=== PATIENT | female | born 1935 | race Caucasian/White ===

== ENCOUNTER 2018-04-29 00:42 | Inpatient (IN) ==
[2018-04-29 01:06] LABS: Basophils % 0.2 % (0.1-2.0); Eosinophils # 0.1 K/mm3 (0.0-0.4); Eosinophils % 0.9 % (0.1-12.0); Lymphocytes # 0.7 K/mm3 (0.7-4.5); Lymphocytes % 13.2 % (10-50); Mean Corpuscular HGB Conc 29.7 g/dL (31.8-35.4); Mean Corpuscular Hemoglobin 28.7 pg (27.0-31.2); Mean Corpuscular Volume 96.5 fl (81-99); Mean Platelet Volume 7.6 fl (7.4-10.4); Monocytes # 0.4 K/mm3 (0.1-1.0); Monocytes % 6.7 % (1.7-9.3); Neutrophils # 4.5 K/mm3 (1.8-7.8); Platelet Count 342 K/mm3 (142-424); Red Blood Count 1.84 M/mm3 (4.20-5.40); Red Cell Distribution Width 16.8 % (11.5-17.5); White Blood Count 5.7 K/mm3 (4.8-10.8)
[2018-04-29 01:17] LABS: Hematocrit 17.6 % (37.0-47.0); Hemoglobin 5.3 g/dL (12.2-16.2)
[2018-04-29 01:27] LABS: Alanine Aminotransferase 22 U/L (12-78); Albumin Level 3.1 gm/dL (3.4-5.0); Alkaline Phosphatase 35 U/L (46-116); Anion Gap 12.8 mEq/L (5-15); Aspartate Amino Transferase 7 U/L (15-37); Bilirubin,Total 0.4 mg/dL (0.2-1.0); Blood Urea Nitrogen 12 mg/dL (7-18); Carbon Dioxide 26 mmol/L (21.0-32.0); Chloride 102 mmol/L (98-107); Glucose 216 mg/dL (74-106); Potassium 3.8 mmoL/L (3.5-5.1); Sodium 137 mmol/L (136-145); Total Protein,Serum 6.1 gm/dL (6.4-8.2)
[2018-04-29 01:40] LABS: Microscopic, Urine URINE MICROSCOPIC (MICROSCOPIC)
[2018-04-29 01:46] LABS: Appearance,Urine CLEAR (Clear); Bilirubin,Urine Negative (Negative); Blood, Urine Negative (Negative); Color,Urine YELLOW (Yellow); Glucose,Urine (UA) TRACE (Negative); Ketones,Urine Negative (Negative); Leukocyte Esterase,Urine Negative (Negative); PH,Urine 7.5 (5.0-8.5); Protein,Urine Negative (Negative); Specific Gravity, Urine 1.015 (1.005-1.030); Urobilinogen,Urine 0.2 EU/dl (0.2)
[2018-04-29 01:55] LABS: Amorphous Sediment,Urine 1+ /lpf; Bacteria,Urine Trace /lpf; WBC,Urine Occasional #/hpf (0-3)
--- NOTE | 2018-04-29 02:00 | Emergency Department Note ---
ED Disposition Clinical Impression: Vasovagal near syncope, Bronchitis Anemia Qualifiers: Anemia type: unspecified type Qualified Code(s): D64.9 - Anemia, unspecified Disposition: Admitted As Inpatient Condition on Discharge: Serious Referrals: Alena Keene MD [Primary Care Provider] - - Critical Care Critical Care Time: No Attestation: On 04/29/18, the high probability of a clinically significant, sudden or life threatening deterioration of the following system(s) required my full and direct attention, intervention and personal management. The time I documented below is in addition to time spent performing reported procedures but includes the following listed in this critical care notation. Medical Decision Making - Medical Records Medical records reviewed: Yes: I reviewed the patient's medical records. - [place] Inquiry Pt receiving controlled substance: No Vital Signs: 04/29/18 00:42 04/29/18 01:42 Temperature 100.3 F H Temperature Source Rectal Pulse Rate [Right Brachial] 105 H 92 H Respiratory Rate 15 15 Blood Pressure [Right Arm] 131/75 139/78 Blood Pressure Mean [Right Arm] 93 98 02 Sat by Pulse Oximetry 93 L 94 L Oxygen Delivery Method Room Air Room Air - Lab Data Lab results reviewed: Yes: I reviewed the patient's lab results. Lab Results 04/29/18 00:50: WBC 5.7, RBC 1.84 L*, Hgb 5.3 L*, Hct 17.6 L*, MCV 96.5, MCH 28.7, MCHC 29.7 L, RDW 16.8, Plt Count 342, MPV 7.6, Neut % (Auto) 79.0, Lymph % (Auto) 13.2, [place] % (Auto) 6.7, Eos % (Auto) 0.9, Baso % (Auto) 0.2, Neut # (Auto) 4.5, Lymph # (Auto) 0.7, [place] # (Auto) 0.4, Eos # (Auto) 0.1, Baso # (Auto) 0.0 04/29/18 00:50: Sodium 137, Potassium 3.8, Chloride 102, Carbon Dioxide 26, Anion Gap 12.8, BUN 12, Creatinine 0.82, Estimated Creat Clear 37, Estimated GFR 66, Est GFR ( Amer) 80, Glucose 216 H, Calcium 8.0 L, Total Bilirubin 0.4, AST 7 L, ALT 22, Alkaline Phosphatase 35 L, Troponin I < 0.02, Total Protein 6.1 L, Albumin 3.1 L, Globulin 3.0, Albumin/Globulin Ratio 1.0 L 04/29/18 00:50: Lactate 1.1 04/29/18 00:50: Influenza Type A Ag Negative, Influenza Type B Ag Negative 04/29/18 01:10: Urine Color Yellow, Urine Appearance Clear, Urine pH 7.5, Ur Specific [place] 1.015, Urine Protein Negative, Urine Glucose (UA) Trace, Urine Ketones Negative, Urine Blood Negative, Urine Nitrate Negative, Urine Bilirubin Negative, Urine Urobilinogen 0.2, Ur Leukocyte Esterase Negative, Urine WBC Occasional, Amorphous Sediment 1+, Urine Bacteria Trace 04/29/18 01:30: Crossmatch (AHG) See Detail 04/29/18 01:30: Stool Occult Blood Positive A Result diagrams: 04/29/18 00:50 04/29/18 00:50 Orders (Tests/Meds): ED MEDICATIONS Generic Name Dose Route Start Last Admin Trade Name Freq PRN Reason Stop Dose Admin Sodium Chloride 1,000 mls @ 999 mls/hr 04/29/18 01:00 04/29/18 01:07 Sod Chlor 0.9% 1000ml Bag IV 04/29/18 02:00 999 mls/hr .Q1H1M MARAL Administration Sodium Chloride 250 mls @ 25 mls/hr 04/29/18 01:30 Sod Chlor 0.9% 250ml Bag IV 04/30/18 01:29 .Q10H MARAL Sodium Chloride 3 ml 04/29/18 01:12 Sodium Chloride 3% 15ml Neb IH 05/29/18 01:11 ONCE PRN INDUCE SPUTUM COLLECTION Discontinued Medications Generic Name Dose Route Start Last Admin Trade Name Freq PRN Reason Stop Dose Admin Acetaminophen 650 mg 04/29/18 00:53 04/29/18 01:07 Acetaminophen 325mg Tab PO 04/29/18 00:54 650 mg ONCE ONE Administration Ibuprofen 400 mg 04/29/18 00:53 04/29/18 01:07 Motrin 400mg Tablet PO 04/29/18 00:54 400 mg ONCE ONE Administration ORDERS Category Date Time Status Packed Red Cells [Red Blood Cells] Stat [facility] 04/29/18 01:30 Received Type and Screen Stat [facility] 04/29/18 01:30 Received XR chest portable Stat Exams 04/29/18 00:50 Taken Occult Blood,Stool Stat Lab 04/29/18 01:30 Ordered Urinalysis and Microscopic Stat Lab 04/29/18 01:10 Ordered Blood Culture Stat Micro 04/29/18 00:52 Ordered Sputum Culture & Gram Stain Stat Micro 04/29/18 01:12 Ordered - Radiology Data #1 Image(s): Chest Image Reviewed: Yes I reviewed the patient's radiology image Preliminary Findings: Normal/NAD - ECG Data Tracing #1 Arrhythmias present: sinus tach Ischemic changes: non-specific ST-T wave changes Weakness HPI - General Chief complaint: Weakness Stated complaint: weakness & fever Time Seen by Provider: 04/29/18 00:55 Mode of Arrival: EMS Source of Information: Patient, Relative, EMS, Medical Record Limitations: No Limitations Description of Symptoms (Recalled from ER Triage Doc. by RN): Reports progressive weakness over the last couple of days, states she was told by Dr Keene she had "fluid around her heart" but no pneumonia but does have fever. Denies nausea or vomiting, denies body aches, denies urinary symptoms, does c/o cough and pain with inspiration. - History of Present Illness HPI Narrative: has had cough over the last few days and tonight had weakness and near syncopal episode - no def chest pain - MD Complaint: generalized weakness Onset (ago): hour(s) Duration: constant Location: generalized Severity: moderate Associated symptoms: shortness of breath - Related Data Home Medications Medication Instructions Recorded Confirmed Amlodipine Besylate 5 mg PO DAILY 04/29/18 04/29/18 Allergies Allergy/AdvReac Type Severity Reaction Status Date / Time No Known Allergies Allergy Unverified 05/19/17 14:41 [facility] History I have reviewed the patient's past medical history: Yes Medical History: Reports:: Diabetes Mellitus Type 2 Denies:: Cancer, MRSA Amputation: No Fractures: No - Social History Alcohol Intake: never - Psychiatric History Expresses thoughts of harming self/others: None Suicide Plan Description: No Plan ROS Obtained: Yes All systems reviewed & no additional complaints - Constitutional Constitutional: Denies fever(s), Reports weakness - Eyes Eyes: Denies blurry vision, Denies change in vision - ENT Ears, Nose, Mouth, and Throat: Denies sore throat - Cardiovascular Cardiovascular: Denies chest pain, Reports dyspnea, Reports lightheadedness - Respiratory Respiratory: Yes cough, No coughing up blood - Gastrointestinal Gastrointestingal: Denies: abdominal pain, black, tarry stools, nausea, vomiting - Genitourinary Male Genitourinary: Reports hematuria Female Genitourinary: Denies hematuria - Musculoskeletal Musculoskeletal: Denies joint pain, Denies neck pain - Integumentary/Breasts Skin/Breast: Denies rash - Neurologic Neurologic: Denies seizure-like activity Physical Exam - General General appearance: alert, in no apparent distress - Head Head exam: normocephalic - Eye Eye exam: Present: PERRL, EOMI, other (pale conj) - ENT ENT exam: Present: mucous membranes dry - Neck Neck exam: Present: trachea midline - Respiratory Respiratory exam: Present: normal lung sounds bilaterally. Absent: respiratory distress - Cardiovascular Cardiovascular exam: Present: regular rate, systolic murmur, +S4 - Abdominal Exam Abdominal exam: Present: soft. Absent: tenderness - Rectal Exam Rectal exam: Present: heme (+) stool - Extremities Exam Extremities exam: Absent: calf tenderness - Neurological Exam Neurological exam: Present: alert, oriented X3, CN II-XII intact - Psychiatric Psychiatric exam: Present: normal affect - Skin Skin exam: Absent: rash
[2018-04-29 06:22] LABS: Anion Gap 13.6 mEq/L (5-15); Calcium 7.7 mg/dL (8.5-10.1); Potassium 3.6 mmoL/L (3.5-5.1)
--- NOTE | 2018-04-29 07:20 | History & Physical Report ---
*Admission Date: 04/29/18 *Chief complaint: Weakness *History of present illness: 82-year-old female with history of hypertension and needed admission to [facility] 13 years ago for ischemic colitis of the descending colon presented to the emergency department with 1 week of compressive weakness. Patient tells me during initial onset of her weakness she did have some left lower quadrant abdominal pain as well but that has improved. She has noted some darkening of the stools. Appetite has been unchanged. Weakness however became progressive until she had a near syncopal event. She will presented to the emergency department and was found to be anemic. Patient takes a baby aspirin e day. She denies use of [id number] NSAIDs. This morning she denies nausea or vomiting. [facility] History Medical History: Reports:: Diabetes Mellitus Type 2, Hypertension Denies:: Cancer, MRSA Comment: Ischemic colitis-[facility] 2004 Amputation: No Fractures: No - *Social History Educational Level: Completed Grade School Smoking Status: Never smoker Alcohol Intake: never Occupational Status: retired Housing: house - Psychiatric History Expresses thoughts of harming self/others: None Suicide Plan Description: No Plan *Family Hx:: Coronary Artery Disease, Heart Attack Review of Systems - Review of Systems Review of systems:: pertinent systems reviewed and negative unless documented below - Constitutional Reports fatigue, Denies body ache(s), Denies chills, Denies daytime sleepiness, Denies excessive sweating, Denies fever(s) - *Cardiovascular Reports shortness of breath, Reports shortness of breath with activity, Denies chest pain, Denies chest pain at rest, Denies chest pain with activity, Denies irregular heart rhythm - *Respiratory Reports cough - *Gastrointestinal Reports abdominal pain, Reports change in bowel habits, Reports change in stools, Denies belching, Denies bloating - *Musculoskeletal Denies abnormal walking - Integumentary/Breasts Denies hair loss - *Neurologic Reports weakness, Denies seizure-like activity Meds Home Medications Medication Instructions Recorded Confirmed Type Amlodipine Besylate 10 mg PO DAILY 04/29/18 04/29/18 History Aspirin 81 mg PO DAILY 04/29/18 04/29/18 History Multivitamin [Multivitamins] 1 each PO DAILY 04/29/18 04/29/18 History Allergies Allergy/AdvReac Type Severity Reaction Status Date / Time No Known Allergies Allergy Verified 04/29/18 03:14 Exam Vital signs and Labs for Last 24 Hours: Temp Pulse Resp BP Pulse Ox 97.8 F 78 17 149/72 H 95 04/29/18 06:50 04/29/18 06:50 04/29/18 06:50 04/29/18 06:50 04/29/18 06:50 Laboratory Results - last 24 hr 04/29/18 00:50: WBC 5.7, RBC 1.84 L*, Hgb 5.3 L*, Hct 17.6 L*, MCV 96.5, MCH 28.7, MCHC 29.7 L, RDW 16.8, Plt Count 342, MPV 7.6, Neut % (Auto) 79.0, Lymph % (Auto) 13.2, [place] % (Auto) 6.7, Eos % (Auto) 0.9, Baso % (Auto) 0.2, Neut # (Auto) 4.5, Lymph # (Auto) 0.7, [place] # (Auto) 0.4, Eos # (Auto) 0.1, Baso # (Auto) 0.0 04/29/18 00:50: Sodium 137, Potassium 3.8, Chloride 102, Carbon Dioxide 26, Anion Gap 12.8, BUN 12, Creatinine 0.82, Estimated Creat Clear 37, Estimated GFR 66, Est GFR ( Amer) 80, Glucose 216 H, Calcium 8.0 L, Total Bilirubin 0.4, AST 7 L, ALT 22, Alkaline Phosphatase 35 L, Troponin I < 0.02, Total Protein 6.1 L, Albumin 3.1 L, Globulin 3.0, Albumin/Globulin Ratio 1.0 L 04/29/18 00:50: Lactate 1.1 04/29/18 00:50: Influenza Type A Ag Negative, Influenza Type B Ag Negative 04/29/18 00:50: Hemoglobin A1c 6.5 04/29/18 00:50: Ferritin 13 04/29/18 01:10: Urine Color Yellow, Urine Appearance Clear, Urine pH 7.5, Ur Specific [place] 1.015, Urine Protein Negative, Urine Glucose (UA) Trace, Urine Ketones Negative, Urine Blood Negative, Urine Nitrate Negative, Urine Bilirubin Negative, Urine Urobilinogen 0.2, Ur Leukocyte Esterase Negative, Urine WBC Occasional, Amorphous Sediment 1+, Urine Bacteria Trace 04/29/18 01:30: Blood Type O Positive, Antibody Screen Negative, Crossmatch (AHG) See Detail 04/29/18 01:30: Stool Occult Blood Positive A 04/29/18 05:55: Troponin I < 0.02 04/29/18 05:55: Sodium 140, Potassium 3.6, Chloride 106, Carbon Dioxide 24, Anion Gap 13.6, BUN 10, Creatinine 0.77, Estimated Creat Clear 42, Estimated GFR 71, Est GFR ( Amer) 86, Glucose 184 H, Calcium 7.7 L I & O for Last 24 hours: Intake & Output 04/26/18 04/27/18 04/28/18 04/29/18 11:59 11:59 11:59 11:59 Intake Total 1047 / 1047 Output Total 800 / 800 Balance 247 / 247 Weight 140 lb 1 oz Narrative: Patient is awake and alert. She does not appear to be in any distress. She is not showing any significant pallor. Oropharynx is moist. Neck is without lymphadenopathy or carotid bruits. Lungs are clear to auscultation. Heart has a regular rate and rhythm. Abdomen is soft with mild left lower quadrant tenderness to palpation and voluntary guarding. Bowel sounds are present. Patient can move all extremities. Hands and feet are warm to touch. Neurologically her exam is grossly normal Assessment and Plan (1) Anemia Current visit: Yes Status: Suspected Qualifiers: Other causes of anemia: acute posthemorrhagic Qualified Code(s): D64.9 - Anemia, unspecified Category: Medical Code(s): D64.9 - Anemia, unspecified (2) Hypertension Current visit: Yes Status: Chronic Qualifiers: Hypertension type: essential hypertension Qualified Code(s): I10 - Essential (primary) hypertension Category: Medical Code(s): I10 - Essential (primary) hypertension - Assessment and plan all Dx Assessment and Plan for all problems:: Patient has been admitted and is being transfused packed red blood cells. H&H but will be repeated later this morning and again this evening. Due to patient's history of ischemic colitis in her left lower quadrant pain I will proceed with a CT of the abdomen and pelvis with IV and oral contrast. Aspirin will be held. Start IV Protonix for possibility of upper GI bleed due to aspirin.
--- NOTE | 2018-04-29 07:38 | Pharmacy Consult Notes ---
[facility] Pharmacy VTE Monitoring - Patient Demographics Admission date: 04/29/18 Report Date: 04/29/18 Time: 07:38 Allergies/Adverse Reactions: Patient Allergies No Known Allergies Allergy (Verified 04/29/18 03:14) Height: 1.7 m Weight: 63.531 kg Patient Problems: Current Active Problems Vasovagal near syncope (Acute) Bronchitis (Acute) Hypertension (Chronic) - VTE Risk Labs: VTE Related Lab Results Hgb 5.3 g/dL (12.2-16.2) L* 04/29/18 00:50 Hct 17.6 % (37.0-47.0) L* 04/29/18 00:50 Plt Count 342 K/mm3 (142-424) 04/29/18 00:50 BUN 10 mg/dL (7-18) 04/29/18 05:55 Creatinine 0.77 mg/dL (0.55-1.02) 04/29/18 05:55 Estimated Creat Clear 42 mL/min (50-200) 04/29/18 05:55 Was VTE Risk Assessment Performed: Yes VTE Score: 2 VTE Risk Level: Low Risk - Prophylaxis VTE Prophylaxis Ordered?: Yes Types of VTE Prophylaxis: TEDS Knee High Location of Applied Device: Bilateral Lower Extremeties - VTE Diagnosis Confirmed Treatment or plan recommended: Continue Current Treatment
[2018-04-29 08:45] LABS: Basophils % 0.3 % (0.1-2.0); Eosinophils # 0.1 K/mm3 (0.0-0.4); Eosinophils % 1.2 % (0.1-12.0); Lymphocytes % 17.1 % (10-50); Mean Corpuscular HGB Conc 31.1 g/dL (31.8-35.4); Mean Corpuscular Hemoglobin 29.6 pg (27.0-31.2); Mean Platelet Volume 8.4 fl (7.4-10.4); Monocytes # 0.4 K/mm3 (0.1-1.0); Monocytes % 7.1 % (1.7-9.3); Neutrophils # 4.2 K/mm3 (1.8-7.8); Neutrophils % 74.3 % (37.0-80.0); Platelet Count 284 K/mm3 (142-424); Red Blood Count 2.76 M/mm3 (4.20-5.40); Red Cell Distribution Width 15.8 % (11.5-17.5); White Blood Count 5.6 K/mm3 (4.8-10.8)
[2018-04-29 08:46] LABS: Hematocrit 26.2 % (37.0-47.0)
[2018-04-29 08:56] LABS: Hemoglobin 8.1 g/dL (12.2-16.2)
[2018-04-29 08:58] LABS: Reticulocyte % (Auto) 7.4 % (0.9-3.2)
[2018-04-29 11:16] LABS: Basophils % 0.2 % (0.1-2.0); Eosinophils # 0.1 K/mm3 (0.0-0.4); Eosinophils % 1.1 % (0.1-12.0); Hemoglobin 8.1 g/dL (12.2-16.2); Lymphocytes # 0.9 K/mm3 (0.7-4.5); Lymphocytes % 16.9 % (10-50); Mean Corpuscular HGB Conc 32.4 g/dL (31.8-35.4); Mean Corpuscular Hemoglobin 30.3 pg (27.0-31.2); Mean Corpuscular Volume 93.5 fl (81-99); Mean Platelet Volume 7.9 fl (7.4-10.4); Monocytes # 0.5 K/mm3 (0.1-1.0); Monocytes % 8.1 % (1.7-9.3); Neutrophils # 4.1 K/mm3 (1.8-7.8); Neutrophils % 73.6 % (37.0-80.0); Platelet Count 279 K/mm3 (142-424); Red Blood Count 2.68 M/mm3 (4.20-5.40); White Blood Count 5.6 K/mm3 (4.8-10.8)
[2018-04-29 20:14] LABS: Basophils % 0.3 % (0.1-2.0); Eosinophils # 0.2 K/mm3 (0.0-0.4); Eosinophils % 2.6 % (0.1-12.0); Hematocrit 25.1 % (37.0-47.0); Lymphocytes # 0.8 K/mm3 (0.7-4.5); Lymphocytes % 13.6 % (10-50); Mean Corpuscular HGB Conc 31.4 g/dL (31.8-35.4); Mean Corpuscular Hemoglobin 29.4 pg (27.0-31.2); Mean Corpuscular Volume 93.5 fl (81-99); Mean Platelet Volume 7.9 fl (7.4-10.4); Monocytes # 0.4 K/mm3 (0.1-1.0); Monocytes % 6.9 % (1.7-9.3); Neutrophils # 4.4 K/mm3 (1.8-7.8); Neutrophils % 76.6 % (37.0-80.0); Platelet Count 293 K/mm3 (142-424); Red Blood Count 2.69 M/mm3 (4.20-5.40); Red Cell Distribution Width 16.1 % (11.5-17.5); White Blood Count 5.8 K/mm3 (4.8-10.8)
[2018-04-29 20:24] LABS: Hemoglobin 7.9 g/dL (12.2-16.2)
--- NOTE | 2018-04-30 06:23 | Consult Report ---
*Admission Date: 04/29/18 *Chief complaint: Weakness *History of present illness: This is an 82-year-old female seen in consultation with Dr. Gabriel for esophagogastroduodenoscopy. She presented with weakness and was found to be significantly anemic. No definitive source noted; however, she has been found to be Hemoccult positive. Please see HPI from an admission H&P forwarded below: 82-year-old female with history of hypertension and needed admission to [facility] 13 years ago for ischemic colitis of the descending colon presented to the emergency department with 1 week of compressive weakness. Patient tells me during initial onset of her weakness she did have some left lower quadrant abdominal pain as well but that has improved. She has noted some darkening of the stools. Appetite has been unchanged. Weakness however became progressive until she had a near syncopal event. She will presented to the emergency department and was found to be anemic. Patient takes a baby aspirin each day. She denies use of [id number] NSAIDs. This morning she denies nausea or vomiting. Review of Systems - Constitutional Reports lack of energy - *Cardiovascular Denies chest pain - *Gastrointestinal Denies bright, red blood in stools - *Genitourinary Denies abnormal vaginal bleeding - *Neurologic Reports weakness, Denies abnormal walking, Denies seizure-like activity - Hematologic/Lymphatic Denies easy bleeding [facility] History Medical History: Reports:: Diabetes Mellitus Type 2, Hypertension Denies:: Cancer, MRSA Amputation: No Fractures: No - *Social History Educational Level: Completed Grade School Smoking Status: Never smoker Alcohol Intake: never Occupational Status: retired Housing: house - Psychiatric History Expresses thoughts of harming self/others: None Suicide Plan Description: No Plan *Family Hx:: Coronary Artery Disease, Heart Attack Meds Home Medications Medication Instructions Recorded Confirmed Type Amlodipine Besylate 10 mg PO DAILY 04/29/18 04/29/18 History Aspirin 81 mg PO DAILY 04/29/18 04/29/18 History Multivitamin [Multivitamins] 1 each PO DAILY 04/29/18 04/29/18 History Allergies Allergy/AdvReac Type Severity Reaction Status Date / Time No Known Allergies Allergy Verified 04/29/18 03:14 Exam Vital signs and Labs for Last 24 Hours: Temp Pulse Resp BP Pulse Ox 98.6 F 80 16 181/85 H 97 04/30/18 03:40 04/30/18 04:00 04/30/18 00:00 04/30/18 03:39 04/30/18 03:39 Laboratory Results - last 24 hr 04/29/18 01:30: Blood Type O Positive, Antibody Screen Negative, Crossmatch (AHG) See Detail 04/29/18 05:55: Troponin I < 0.02 04/29/18 05:55: Sodium 140, Potassium 3.6, Chloride 106, Carbon Dioxide 24, Anion Gap 13.6, BUN 10, Creatinine 0.77, Estimated Creat Clear 42, Estimated GFR 71, Est GFR ( Amer) 86, Glucose 184 H, Calcium 7.7 L 04/29/18 08:35: WBC 5.6, RBC 2.76 L D, Hgb 8.1 L D, Hct 26.2 L, MCV 95.0, MCH 29.6, MCHC 31.1 L, RDW 15.8, Plt Count 284, MPV 8.4, Neut % (Auto) 74.3, Lymph % (Auto) 17.1, [place] % (Auto) 7.1, Eos % (Auto) 1.2, Baso % (Auto) 0.3, Neut # (Auto) 4.2, Lymph # (Auto) 1.0, [place] # (Auto) 0.4, Eos # (Auto) 0.1, Baso # (Auto) 0.0 04/29/18 08:35: Blood Type Confirm O Positive 04/29/18 08:35: Retic Count (auto) 7.4 H 04/29/18 11:08: WBC 5.6, RBC 2.68 L, Hgb 8.1 L, Hct 25.0 L, MCV 93.5, MCH 30.3, MCHC 32.4, RDW 16.0, Plt Count 279, MPV 7.9, Neut % (Auto) 73.6, Lymph % (Auto) 16.9, [place] % (Auto) 8.1, Eos % (Auto) 1.1, Baso % (Auto) 0.2, Neut # (Auto) 4.1, Lymph # (Auto) 0.9, [place] # (Auto) 0.5, Eos # (Auto) 0.1, Baso # (Auto) 0.0 04/29/18 20:03: WBC 5.8, RBC 2.69 L, Hgb 7.9 L*, Hct 25.1 L, MCV 93.5, MCH 29.4, MCHC 31.4 L, RDW 16.1, Plt Count 293, MPV 7.9, Neut % (Auto) 76.6, Lymph % (Auto) 13.6, [place] % (Auto) 6.9, Eos % (Auto) 2.6, Baso % (Auto) 0.3, Neut # (Auto) 4.4, Lymph # (Auto) 0.8, [place] # (Auto) 0.4, Eos # (Auto) 0.2, Baso # (Auto) 0.0 04/30/18 03:43: POC Glucose 187 H I & O for Last 24 hours: Intake & Output 04/27/18 04/28/18 04/29/18 04/30/18 11:59 11:59 11:59 11:59 Intake Total 1287 / 1287 503 / 503 Output Total 800 / 800 800 / 800 Balance 487 / 487 -297 / -297 Weight 140 lb 1 oz - Constitutional no acute distress - *Routine Cardiovascular Exam Present: RRR - *Routine Abdominal Exam Present: soft Results - Labs 04/29/18 20:03 04/29/18 05:55 Laboratory Results - last 24 hr 04/29/18 01:30: Blood Type O Positive, Antibody Screen Negative, Crossmatch (AHG) See Detail 04/29/18 05:55: Troponin I < 0.02 04/29/18 05:55: Sodium 140, Potassium 3.6, Chloride 106, Carbon Dioxide 24, Anion Gap 13.6, BUN 10, Creatinine 0.77, Estimated Creat Clear 42, Estimated GFR 71, Est GFR ( Amer) 86, Glucose 184 H, Calcium 7.7 L 04/29/18 08:35: WBC 5.6, RBC 2.76 L D, Hgb 8.1 L D, Hct 26.2 L, MCV 95.0, MCH 29.6, MCHC 31.1 L, RDW 15.8, Plt Count 284, MPV 8.4, Neut % (Auto) 74.3, Lymph % (Auto) 17.1, [place] % (Auto) 7.1, Eos % (Auto) 1.2, Baso % (Auto) 0.3, Neut # (Auto) 4.2, Lymph # (Auto) 1.0, [place] # (Auto) 0.4, Eos # (Auto) 0.1, Baso # (Auto) 0.0 04/29/18 08:35: Blood Type Confirm O Positive 04/29/18 08:35: Retic Count (auto) 7.4 H 04/29/18 11:08: WBC 5.6, RBC 2.68 L, Hgb 8.1 L, Hct 25.0 L, MCV 93.5, MCH 30.3, MCHC 32.4, RDW 16.0, Plt Count 279, MPV 7.9, Neut % (Auto) 73.6, Lymph % (Auto) 16.9, [place] % (Auto) 8.1, Eos % (Auto) 1.1, Baso % (Auto) 0.2, Neut # (Auto) 4.1, Lymph # (Auto) 0.9, [place] # (Auto) 0.5, Eos # (Auto) 0.1, Baso # (Auto) 0.0 04/29/18 20:03: WBC 5.8, RBC 2.69 L, Hgb 7.9 L*, Hct 25.1 L, MCV 93.5, MCH 29.4, MCHC 31.4 L, RDW 16.1, Plt Count 293, MPV 7.9, Neut % (Auto) 76.6, Lymph % (Auto) 13.6, [place] % (Auto) 6.9, Eos % (Auto) 2.6, Baso % (Auto) 0.3, Neut # (Auto) 4.4, Lymph # (Auto) 0.8, [place] # (Auto) 0.4, Eos # (Auto) 0.2, Baso # (Auto) 0.0 04/30/18 03:43: POC Glucose 187 H Assessment and Plan (1) Anemia Current visit: Yes Status: Suspected Qualifiers: Other causes of anemia: acute posthemorrhagic Category: Medical Code(s): D64.9 - Anemia, unspecified (2) Hypertension Current visit: Yes Status: Chronic Qualifiers: Hypertension type: essential hypertension Qualified Code(s): I10 - Essential (primary) hypertension Category: Medical Code(s): I10 - Essential (primary) hypertension (3) Heme positive stool Current visit: Yes Status: Acute Category: Medical Code(s): R19.5 - Other fecal abnormalities The patient is being scheduled for esophagogastroduodenoscopy to be performed this morning. Further evaluation and management will be pending results of this procedure. I have discussed the risks and benefits including, but not limited to: Bleeding Infection Damage to surrounding tissue Inherent risks of sedation The patient agrees to proceed.
[2018-04-30 06:27] LABS: Eosinophils # 0.2 K/mm3 (0.0-0.4); Lymphocytes # 0.7 K/mm3 (0.7-4.5); Mean Platelet Volume 7.5 fl (7.4-10.4); Monocytes # 0.4 K/mm3 (0.1-1.0); Red Cell Distribution Width 15.6 % (11.5-17.5)
[2018-04-30 06:45] LABS: Basophils % 0.4 % (0.1-2.0); Eosinophils % 4.2 % (0.1-12.0); Lymphocytes % 14.6 % (10-50); Mean Corpuscular HGB Conc 31.2 g/dL (31.8-35.4); Mean Corpuscular Hemoglobin 29.1 pg (27.0-31.2); Mean Corpuscular Volume 93.4 fl (81-99); Monocytes % 7.7 % (1.7-9.3); Neutrophils # 3.7 K/mm3 (1.8-7.8); Neutrophils % 73.1 % (37.0-80.0); Platelet Count 277 K/mm3 (142-424); Red Blood Count 3.21 M/mm3 (4.20-5.40)
[2018-04-30 06:54] LABS: Hemoglobin 9.4 g/dL (12.2-16.2)
--- NOTE | 2018-04-30 06:54 | Progress Note ---
Internal Medicine - PN: Subj *Date: 04/30/18 *Time: 06:53 Interval history: Patient has no complaints this morning. She had another unit of blood transfused overnight when her hemoglobin dropped just slightly to 7.9. She has not had any further bowel movements. She is scheduled for EGD this morning. She tolerated a soft diet yesterday evening. Exam Vital signs and Labs for Last 24 Hours: Temp Pulse Resp BP Pulse Ox 98.6 F 80 16 181/85 H 97 04/30/18 03:40 04/30/18 04:00 04/30/18 00:00 04/30/18 03:39 04/30/18 03:39 Laboratory Results - last 24 hr 04/29/18 01:30: Blood Type O Positive, Antibody Screen Negative, Crossmatch (AHG) See Detail 04/29/18 08:35: WBC 5.6, RBC 2.76 L D, Hgb 8.1 L D, Hct 26.2 L, MCV 95.0, MCH 29.6, MCHC 31.1 L, RDW 15.8, Plt Count 284, MPV 8.4, Neut % (Auto) 74.3, Lymph % (Auto) 17.1, [place] % (Auto) 7.1, Eos % (Auto) 1.2, Baso % (Auto) 0.3, Neut # (Auto) 4.2, Lymph # (Auto) 1.0, [place] # (Auto) 0.4, Eos # (Auto) 0.1, Baso # (Auto) 0.0 04/29/18 08:35: Blood Type Confirm O Positive 04/29/18 08:35: Retic Count (auto) 7.4 H 04/29/18 11:08: WBC 5.6, RBC 2.68 L, Hgb 8.1 L, Hct 25.0 L, MCV 93.5, MCH 30.3, MCHC 32.4, RDW 16.0, Plt Count 279, MPV 7.9, Neut % (Auto) 73.6, Lymph % (Auto) 16.9, [place] % (Auto) 8.1, Eos % (Auto) 1.1, Baso % (Auto) 0.2, Neut # (Auto) 4.1, Lymph # (Auto) 0.9, [place] # (Auto) 0.5, Eos # (Auto) 0.1, Baso # (Auto) 0.0 04/29/18 20:03: WBC 5.8, RBC 2.69 L, Hgb 7.9 L*, Hct 25.1 L, MCV 93.5, MCH 29.4, MCHC 31.4 L, RDW 16.1, Plt Count 293, MPV 7.9, Neut % (Auto) 76.6, Lymph % (Auto) 13.6, [place] % (Auto) 6.9, Eos % (Auto) 2.6, Baso % (Auto) 0.3, Neut # (Auto) 4.4, Lymph # (Auto) 0.8, [place] # (Auto) 0.4, Eos # (Auto) 0.2, Baso # (Auto) 0.0 04/30/18 03:43: POC Glucose 187 H I & O for Last 24 hours: Intake & Output 04/27/18 04/28/18 04/29/18 04/30/18 11:59 11:59 11:59 11:59 Intake Total 1287 / 1287 503 / 503 Output Total 800 / 800 800 / 800 Balance 487 / 487 -297 / -297 Weight 140 lb 1 oz Narrative: She is in no distress. Abdomen is soft and nontender Assessment and Plan (1) Anemia Current visit: Yes Status: Suspected Qualifiers: Other causes of anemia: acute posthemorrhagic Category: Medical Code(s): D64.9 - Anemia, unspecified (2) Hypertension Current visit: Yes Status: Chronic Qualifiers: Hypertension type: essential hypertension Qualified Code(s): I10 - Essential (primary) hypertension Category: Medical Code(s): I10 - Essential (primary) hypertension (3) Heme positive stool Current visit: Yes Status: Acute Category: Medical Code(s): R19.5 - Other fecal abnormalities - Assessment and plan all Dx Assessment and Plan for all problems:: Patient will undergo EGD today. Await morning CBC. If H&H remains stable and EGD is unremarkable patient will be discharged home later today. If EGD is abnormal further decisions about disposition will be made
--- NOTE | 2018-04-30 07:12 | Progress Note ---
[facility] Anesthesia Checklist - Structural Data Admitted From: Inpatient Planned Operative Procedure/s: egd Consent for Planned Operative Procedure(s) Verified: Yes - Airway Assessment C-Spine Mobility Assessed: Yes TMJ Mobility Assessed: Yes Dentition: Good Dentition - Neurological Assessment Level of Consciousness: Awake, Alert, Appropriate - Anesthesia Plan Anesthesia Risk discussed: Yes Anesthesia Plan: Verified ASA Class: II Anesthesia Type: MAC [facility] History I have reviewed the patient's past medical history: Yes Medical History: Reports:: Diabetes Mellitus Type 2, Hypertension Denies:: Cancer, MRSA Amputation: No Fractures: No - *Social History Educational Level: Completed Grade School Smoking Status: Never smoker Alcohol Intake: never Occupational Status: retired Housing: house - Psychiatric History Expresses thoughts of harming self/others: None Suicide Plan Description: No Plan *Family Hx:: Coronary Artery Disease, Heart Attack
--- NOTE | 2018-04-30 07:19 | Procedure Note ---
- Procedure: Date: 04/30/18 Procedure Performed:: Esophagogastroduodenoscopy with biopsy Indications:: Anemia Heme positive stools Performing Provider:: Nazario Cervantes MD Referring Provider:: Dr. Grant Gabriel Sedation:: Monitored anesthesia care Procedure:: After informed consent was obtained the patient was taken to the endoscopy suite. Sedation ensued after the patient was transferred to the left lateral decubitus position. Pulse, blood pressure, and oxygen saturation were monitored throughout the procedure. The endoscope was advanced beyond the duodenal bulb. Retroflexion within the gastric lumen was accomplished. The gastroscope was carefully removed and the patient was transferred to recovery in stable condition. Please see "findings" and "specimens" below for detail. Findings:: Gastroesophageal junction 40 cm Fairly small sliding hiatal hernia Mild inflammatory response at gastroesophageal junction Minimal to mild patchy gastritis and possible duodenitis No sign of active or recent hemorrhage No severe inflammation No ulceration Specimens:: Antral biopsy Recommendations:: Proton pump inhibition and/or H2 blockade as appropriate. Follow-up pathology. Further evaluation/management with regard to anemia/heme positive stools will be ongoing. Complications:: No immediate Estimated blood obtained (mL): 1
[2018-04-30 11:22] LABS: Basophils % 0.2 % (0.1-2.0); Eosinophils # 0.3 K/mm3 (0.0-0.4); Eosinophils % 4.5 % (0.1-12.0); Hematocrit 31.5 % (37.0-47.0); Hemoglobin 9.7 g/dL (12.2-16.2); Lymphocytes # 0.7 K/mm3 (0.7-4.5); Lymphocytes % 12.1 % (10-50); Mean Corpuscular HGB Conc 30.8 g/dL (31.8-35.4); Mean Corpuscular Hemoglobin 29.2 pg (27.0-31.2); Mean Corpuscular Volume 94.7 fl (81-99); Mean Platelet Volume 7.8 fl (7.4-10.4); Monocytes # 0.4 K/mm3 (0.1-1.0); Monocytes % 7.5 % (1.7-9.3); Neutrophils # 4.4 K/mm3 (1.8-7.8); Neutrophils % 75.7 % (37.0-80.0); Platelet Count 288 K/mm3 (142-424); Red Blood Count 3.32 M/mm3 (4.20-5.40); Red Cell Distribution Width 15.6 % (11.5-17.5); White Blood Count 5.8 K/mm3 (4.8-10.8)
--- NOTE | 2018-04-30 12:53 | Discharge Summary ---
General - General Admission date:: 04/29/18 Discharge date: 05/01/18 HPI HPI: 82-year-old female with history of hypertension and needed admission to [facility] 13 years ago for ischemic colitis of the descending colon presented to the emergency department with 1 week of compressive weakness. Patient tells me during initial onset of her weakness she did have some left lower quadrant abdominal pain as well but that has improved. She has noted some darkening of the stools. Appetite has been unchanged. Weakness however became progressive until she had a near syncopal event. She will presented to the emergency department and was found to be anemic. Patient takes a baby aspirin each day. She denies use of [id number] NSAIDs. This morning she denies nausea or vomiting. Review of medical records however shows a similar admission in 2004 when the patient had a limited colonoscopy after presenting with bloody diarrhea that showed ischemic colitis. Follow-up complete colonoscopy performed about a month after that admission showed resolution of her ischemic colitis. Hospital Course Hospital Course: On admission patient was transfused 2 units of packed red blood cells which raise her hemoglobin from 5.3-8.1. By that evening hemoglobin decreased slightly to 7.9 and she was transfused 1 additional unit of packed red blood cells with subsequent hemoglobins being 9.4 and 9.7. On exam the morning of admission patient had some left lower quadrant tenderness to palpation. A CT scan of the abdomen and pelvis with IV and oral contrast was ordered which only showed nonobstructive nephrolithiasis and bladder distention. Surgical service was consulted for EGD which was performed on April 30. No source of bleeding was identified. A biopsy was performed. On the evening of the patient felt better but still unsteady on her feet. She was kept overnight and discharged home on May 01. Objective Vital signs: Temp Pulse Resp BP Pulse Ox 98.2 F 90 18 179/80 H 95 04/30/18 08:00 04/30/18 08:00 04/30/18 07:29 04/30/18 07:29 04/30/18 07:29 Results Labs on day of discharge: Labs from last 24 hours 04/30/18 04/30/18 04/30/18 11:00 05:45 03:43 WBC 5.8 5.0 RBC 3.32 L 3.21 L Hgb 9.7 L 9.4 L D Hct 31.5 L 30.0 L MCV 94.7 93.4 MCH 29.2 29.1 MCHC 30.8 L 31.2 L RDW 15.6 15.6 Plt Count 288 277 MPV 7.8 7.5 Neut % (Auto) 75.7 73.1 Lymph % (Auto) 12.1 14.6 [place] % (Auto) 7.5 7.7 Eos % (Auto) 4.5 4.2 Baso % (Auto) 0.2 0.4 Neut # (Auto) 4.4 3.7 Lymph # (Auto) 0.7 0.7 [place] # (Auto) 0.4 0.4 Eos # (Auto) 0.3 0.2 Baso # (Auto) 0.0 0.0 POC Glucose 187 H Iron TIBC Iron Saturation Unsaturated IBC Blood Type Antibody Screen Crossmatch (AHG) 04/29/18 04/29/18 04/29/18 20:03 01:30 00:50 WBC 5.8 RBC 2.69 L Hgb 7.9 L* Hct 25.1 L MCV 93.5 MCH 29.4 MCHC 31.4 L RDW 16.1 Plt Count 293 MPV 7.9 Neut % (Auto) 76.6 Lymph % (Auto) 13.6 [place] % (Auto) 6.9 Eos % (Auto) 2.6 Baso % (Auto) 0.3 Neut # (Auto) 4.4 Lymph # (Auto) 0.8 [place] # (Auto) 0.4 Eos # (Auto) 0.2 Baso # (Auto) 0.0 POC Glucose Iron 12 L TIBC 329 Iron Saturation 4 L Unsaturated IBC 317 Blood Type O Positive Antibody Screen Negative Crossmatch (AHG) See Detail DS: Diagnosis - Discharge Diagnosis (1) Anemia Status: Suspected (2) Hypertension Status: Chronic (3) Heme positive stool Status: Acute Discharge Plan - Patient Discharge Instructions ACTIVITY: Continue current activity DIET: continue same diet Patient Instructions: Anemia - Follow up Plan Follow up with: Nzaario Cervantes MD [Staff Physician] - 1 week Grant Gabriel MD [Staff Physician] - 05/03/18 2:00 pm Disposition: Home, Self-Senior Living Medications: Home Medications Medication Instructions Recorded Confirmed Type Amlodipine Besylate 10 mg PO DAILY 04/29/18 04/29/18 History Aspirin 81 mg PO DAILY 04/29/18 04/29/18 History Multivitamin [Multivitamins] 1 each PO DAILY 04/29/18 04/29/18 History Prescriptions/Medication Reconciliation: New Omeprazole [Omeprazole 20mg Tab] 20 mg PO DAILY #30 tab Continue Amlodipine Besylate 10 mg PO DAILY Multivitamin [Multivitamins] 1 each PO DAILY Discontinued Aspirin 81 mg PO DAILY
[2018-05-01 09:06] LABS: Basophils % 0.2 % (0.1-2.0); Eosinophils # 0.3 K/mm3 (0.0-0.4); Eosinophils % 4.6 % (0.1-12.0); Hematocrit 29.7 % (37.0-47.0); Hemoglobin 9.3 g/dL (12.2-16.2); Lymphocytes # 0.7 K/mm3 (0.7-4.5); Lymphocytes % 12.7 % (10-50); Mean Corpuscular HGB Conc 31.5 g/dL (31.8-35.4); Mean Corpuscular Hemoglobin 29.4 pg (27.0-31.2); Mean Corpuscular Volume 93.4 fl (81-99); Mean Platelet Volume 8.1 fl (7.4-10.4); Monocytes # 0.4 K/mm3 (0.1-1.0); Monocytes % 7.5 % (1.7-9.3); Neutrophils % 74.9 % (37.0-80.0); Platelet Count 255 K/mm3 (142-424); Red Blood Count 3.18 M/mm3 (4.20-5.40); Red Cell Distribution Width 15.3 % (11.5-17.5); White Blood Count 5.4 K/mm3 (4.8-10.8)
--- NOTE | 2018-05-01 10:29 | Progress Note ---
Internal Medicine - PN: Subj *Date: 05/01/18 *Time: 10:27 Interval history: NO complaints overngint.... no GI bleeding s/s. Patient wishes to be dcd. Exam Vital signs and Labs for Last 24 Hours: Temp Pulse Resp BP Pulse Ox 98.3 F 79 18 155/88 H 97 05/01/18 08:00 05/01/18 08:00 05/01/18 08:00 05/01/18 08:00 05/01/18 08:00 Laboratory Results - last 24 hr 04/29/18 00:50: Iron 12 L, TIBC 329, Iron Saturation 4 L, Unsaturated IBC 317 04/30/18 11:00: WBC 5.8, RBC 3.32 L, Hgb 9.7 L, Hct 31.5 L, MCV 94.7, MCH 29.2, MCHC 30.8 L, RDW 15.6, Plt Count 288, MPV 7.8, Neut % (Auto) 75.7, Lymph % (Auto) 12.1, [place] % (Auto) 7.5, Eos % (Auto) 4.5, Baso % (Auto) 0.2, Neut # (Auto) 4.4, Lymph # (Auto) 0.7, [place] # (Auto) 0.4, Eos # (Auto) 0.3, Baso # (Auto) 0.0 05/01/18 09:00: WBC 5.4, RBC 3.18 L, Hgb 9.3 L, Hct 29.7 L, MCV 93.4, MCH 29.4, MCHC 31.5 L, RDW 15.3, Plt Count 255, MPV 8.1, Neut % (Auto) 74.9, Lymph % (Auto) 12.7, [place] % (Auto) 7.5, Eos % (Auto) 4.6, Baso % (Auto) 0.2, Neut # (Auto) 4.0, Lymph # (Auto) 0.7, [place] # (Auto) 0.4, Eos # (Auto) 0.3, Baso # (Auto) 0.0 I & O for Last 24 hours: Intake & Output 04/28/18 04/29/18 04/30/18 05/01/18 11:59 11:59 11:59 11:59 Intake Total 1287 / 1287 1103 / 1103 960 / 960 Output Total 800 / 800 1100 / 1100 Balance 487 / 487 3 959 / 959 Weight 140 lb 1 oz 139 lb 4 oz Microbiology Reports for the Last 24 Hours: Microbiology 04/29/18 00:52 Blood Blood Culture - Preliminary NO GROWTH AFTER 48 HOURS 04/29/18 00:52 Blood Blood Culture - Preliminary NO GROWTH AFTER 48 HOURS - Constitutional no acute distress, cooperative - *Routine HEENT Exam ENT: Present: mucous membranes moist - *Routine Respiratory Exam Present: CTA bilaterally - *Routine Cardiovascular Exam Present: RRR, Normal S1, Normal S2. Absent: murmur - *Routine Abdominal Exam Present: soft, normoactive bowel sounds. Absent: tenderness, mass - *Routine Extremities Exam Present: pulses intact. Absent: cyanosis, clubbing, edema Assessment and Plan (1) Anemia Current visit: Yes Status: Suspected Qualifiers: Other causes of anemia: acute posthemorrhagic Category: Medical Code(s): D64.9 - Anemia, unspecified (2) Hypertension Current visit: Yes Status: Chronic Qualifiers: Hypertension type: essential hypertension Qualified Code(s): I10 - Esse ntial (primary) hypertension Category: Medical Code(s): I10 - Essential (primary) hypertension (3) Heme positive stool Current visit: Yes Status: Acute Category: Medical Code(s): R19.5 - Other fecal abnormalities - Assessment and plan all Dx Assessment and Plan for all problems:: stable.... cbc acceptable.... no stigmata of bleeding. DC with close f/u as arranged.
== END 2018-05-01 11:59 | disposition home or self-care (01) ==
LOC: ER 00:42 → 2ND 02:06
PROVIDERS: ADMIT Emergency Medicine; ATTEND Family Medicine
CPT/HCPCS: 36415; 71010; 71045; 74177; 80048; 80053; 81001; 82272; 82728; 82962; 83036; 83540; 83550; 83605; 84484; 85025; 85044; 86850; 87040; 87275; 87276; 93005; 96365; 99285; G0328; J2405; P9016; Q9967

== ENCOUNTER 2018-08-13 14:52 | Observation (INO) ==
--- NOTE | 2018-08-13 16:15 | Pharmacy Consult Notes ---
[facility] Pharmacy VTE Monitoring - Patient Demographics Admission date: 08/13/18 (T) Report Date: 08/13/18 Time: 16:13 Allergies/Adverse Reactions: Patient Allergies No Known Allergies Allergy (Verified 05/26/18 13:26) Height: 1.7 m Weight: 60.526 kg - Prophylaxis Types of VTE Prophylaxis: TEDS Knee High (SONJA HOSE ORDER PLACED)
--- NOTE | 2018-08-13 16:43 | History & Physical Report ---
*Admission Date: 08/13/18 (T) *Chief complaint: Weakness *History of present illness: 82-year-old female with history of hypertension and previous hospitalization for GI bleed presented to the office today with weakness. Patient had been seen in the office 48 hours prior with concerns over possible recurrent anemia which in the past had been due to GI bleed. Patient H&H was normal on her August 11 visit. Patient went home and apparently fell. She was in the floor for several hours before being found by family. Since that time she has been unable to ambulate due to lower extremity weakness. She denies any specific joint pains. When there had been very little improvement over the last 24 hours she was brought to the office by family. Workup in the office was significant for tachycardia and an EKG that showed apparent atrial fibrillation. Because the patient's rate was 134, she was complaining of shortness of breath and weakness decision was made to admit the patient to the hospital for a Cardizem drip. However, upon arrival to the floor patient's EKG that was repeated at the hospital has shown sinus tachycardia with PACs. She is currently receiving a fluid bolus. Patient also endorses symptoms of a cough. [facility] History I have reviewed the patient's past medical history: Yes Medical History: Reports:: Diabetes Mellitus Type 2, Hypertension Denies:: Cancer, MRSA *Have you ever received a pneumonia vaccine?: No *Have you received a flu vaccine this season?: No Other Surgeries: Yes: EGD Amputation: No Fractures: No - *Social History Smoking Status: Never smoker Alcohol Intake: never *Occupational Status:: retired Housing: house Family Hx:: Coronary Artery Disease, Heart Attack Review of Systems - Constitutional Reports lack of energy, Reports malaise, Reports weakness, Denies body ache(s), Denies chills, Denies fatigue, Denies fever(s), Denies headache(s), Denies night sweats - *Cardiovascular Denies chest pain at rest, Denies chest pain with activity - *Respiratory Reports cough, Reports shortness of breath - *Gastrointestinal Denies abdominal pain, Denies bloating - *Musculoskeletal Reports abnormal walking Meds Home Medications Medication Instructions Recorded Confirmed Type Acetaminophen with Codeine 1 tab PO Q6HP PRN 08/13/18 08/13/18 History [Tylenol with Codeine #3 tablet] Albuterol Sulfate [Proair Hfa 2 puffs IH Q6HP PRN 08/13/18 08/13/18 History 90mcg/puff Inh] Amlodipine Besylate [Amlodipine 10 mg PO DAILY 08/13/18 08/13/18 History 10mg Tab] Esomeprazole Magnesium [Nexium 20 mg PO DAILY 08/13/18 08/13/18 History 24Hr] Levocetirizine Dihydrochloride 5 mg PO DAILY 08/13/18 08/13/18 History [Xyzal] hydroCHLOROthiazide 12.5 mg PO DAILY 08/13/18 08/13/18 History [Hydrochlorothiazide 12.5mg Tab] Allergies Allergy/AdvReac Type Severity Reaction Status Date / Time No Known Allergies Allergy Verified 05/26/18 13:26 Exam Vital signs and Labs for Last 24 Hours: Temp Pulse Resp BP Pulse Ox 98.6 F 125 H 20 170/98 H 92 L 08/13/18 15:35 08/13/18 15:35 08/13/18 15:35 08/13/18 15:35 08/13/18 15:35 I & O for Last 24 hours: Intake & Output 08/11/18 08/12/18 08/13/18 08/14/18 11:59 11:59 11:59 11:59 Intake Total 0 / 0 Balance 0 / 0 Weight 133 lb 7 oz Narrative: Patient is resting comfortably in bed. HEENT exam is unremarkable. Neck is without carotid bruits. There is no jugular venous distention. Lungs are clear to auscultation. Heart has a fast irregular rhythm. Abdomen is thin and soft. Extremities are warm to the touch and there is no edema Assessment and Plan (1) Paroxysmal atrial fibrillation Current visit: Yes Status: Acute Category: Medical Code(s): I48.0 - Paroxysmal atrial fibrillation (2) Sinus tachycardia Current visit: Yes Status: Acute Category: Medical Code(s): R00.0 - Tachycardia, unspecified - Assessment and plan all Dx Assessment and Plan for all problems:: Patient has been admitted and will be kept on telemetry monitoring for cardiac arrhythmia. Currently she is in sinus tachycardia. She has been given a 500 mL fluid bolus. A CBC in the office was unremarkable. Electrolytes and a BNP as well as troponin are being checked on admission. Chest x-ray will be ordered for the patient's cough
[2018-08-13 17:02] LABS: Anion Gap 15.7 mEq/L (5-15); Calcium 10.1 mg/dL (8.5-10.1)
[2018-08-13 17:08] LABS: Potassium 2.7 mmoL/L (3.5-5.1)
[2018-08-14 06:08] LABS: Anion Gap 12.4 mEq/L (5-15); Potassium 3.4 mmoL/L (3.5-5.1)
[2018-08-14 06:13] LABS: Calcium 8.8 mg/dL (8.5-10.1)
--- NOTE | 2018-08-14 07:39 | Progress Note ---
Internal Medicine - PN: Subj *Date: 08/14/18 *Time: 07:36 Interval history: Patient has no complaints this morning. She was found to be hypokalemic yesterday which I believe explains her muscular weakness. Potassium was replaced intravenously and is risen this morning although is still under normal range. Patient has continued to have a cough. Attempt was made to collect a sputum culture although her chest x-ray was negative. Sputum culture will be canceled. She admits she thinks she feels a little stronger although has not had a chance to test that theory by getting out of bed Exam Vital signs and Labs for Last 24 Hours: Temp Pulse Resp BP Pulse Ox 97.9 F 88 17 131/87 91 L 08/14/18 04:00 08/14/18 06:00 08/14/18 06:00 08/14/18 06:00 08/14/18 06:00 Laboratory Results - last 24 hr 08/13/18 16:20: Sodium 137, Potassium 2.7 L*, Chloride 97 L, Carbon Dioxide 27, Anion Gap 15.7 H, BUN 23 H, Creatinine 1.19 H, Estimated Creat Clear 34, Estimated GFR 43 L, Est GFR ( Amer) 52 L, Glucose 228 H, Calcium 10.1 08/13/18 16:20: Troponin I 0.04 08/13/18 16:20: B-Natriuretic Peptide 80 08/14/18 05:30: Sodium 139, Potassium 3.4 L D, Chloride 104, Carbon Dioxide 26, Anion Gap 12.4, BUN 18, Creatinine 0.89 D, Estimated Creat Clear 40, Estimated GFR 60, Est GFR ( Amer) 73 D, Glucose 107 H D, Calcium 8.8 D I & O for Last 24 hours: Intake & Output 08/11/18 08/12/18 08/13/18 08/14/18 11:59 11:59 11:59 11:59 Intake Total 984 / 984 Balance 984 / 984 Weight 136 lb 2 oz Microbiology Reports for the Last 24 Hours: Microbiology 08/13/18 19:45 Sputum - Expectorated Sputum Gram Stain - Final 08/13/18 19:45 Sputum - Expectorated Sputum Sputum Culture - Final Narrative: Patient is awake. She is noted to have a frequent hacking cough. Oropharynx is moist and clear. Lungs this morning have expiratory wheezes. Heart has rapid regular rate. Assessment and Plan (1) Hypokalemia Current visit: Yes Status: Acute Category: Medical Code(s): E87.6 - Hypokalemia Continue to replace potassium with both IV and oral potassium. Repeat potassium in a.m. (2) Paroxysmal atrial fibrillation Current visit: Yes Status: Acute Category: Medical Code(s): I48.0 - Paro xysmal atrial fibrillation No atrial fibrillation has been seen on telemetry monitoring since admission. Patient will transfer out of stepdown (3) Sinus tachycardia Current visit: Yes Status: Acute Category: Medical Code(s): R00.0 - Tachycardia, unspecified (4) Acute bronchospasm Current visit: Yes Status: Acute Category: Medical Code(s): J98.01 - Acute bronchospasm Start 3 times daily ipratropium and Xopenex. Give prednisone 20 mg p.o.
[2018-08-15 04:55] LABS: Anion Gap 13.7 mEq/L (5-15); Calcium 8.8 mg/dL (8.5-10.1); Potassium 3.7 mmoL/L (3.5-5.1)
--- NOTE | 2018-08-15 07:39 | Progress Note ---
Internal Medicine - PN: Subj *Date: 08/15/18 *Time: 07:36 Interval history: Patient states she does not feel well this morning. She cannot really elaborate on why she feels so bad. She claims she did not sleep very well although nursing staff reports that patient slept through the night. She has been out of bed very little. Nursing staff reports patient has required assistance of one person to ambulate back and forth to the bathroom. She has also required standby assist of another with transitions. The patient continues to cough. Her chest x-ray was negative. She denies shortness of breath. Her pulse is remained in the high 90s. Her potassium has been corrected. Patient was given steroid yesterday due to expiratory wheezes. This elevated her blood sugars. Patient also developed some tremors with initiation of breathing treatment Exam Vital signs and Labs for Last 24 Hours: Temp Pulse Resp BP Pulse Ox 98.4 F 91 H 18 168/87 H 92 L 08/15/18 03:41 08/15/18 07:11 08/15/18 03:41 08/15/18 03:41 08/15/18 07:11 Laboratory Results - last 24 hr 08/14/18 21:32: POC Glucose 363 H* 08/15/18 04:40: Sodium 140, Potassium 3.7, Chloride 104, Carbon Dioxide 26, Anion Gap 13.7, BUN 19 H, Creatinine 0.88, Estimated Creat Clear 41, Estimated GFR 61, Est GFR ( Amer) 74, Glucose 210 H D, Calcium 8.8 I & O for Last 24 hours: Intake & Output 08/12/18 08/13/18 08/14/18 08/15/18 11:59 11:59 11:59 11:59 Intake Total 1432.333 / 1432.333 890 / 890 Output Total 200 / 200 Balance 1432.333 / 1432.333 690 / 690 Weight 136 lb 2 oz 139 lb 1 oz Narrative: She does not appear to be in any distress and is comfortably laying in bed. She is getting a DuoNeb. She does not show any signs of tremors. Lung exam reveals coarse breath sounds with some expiratory wheezes. Heart has a regular rate and rhythm. Abdomen is thin and soft. Assessment and Plan (1) Hypokalemia Current visit: Yes Status: Acute Category: Medical Code(s): E87.6 - Hypokalemia Potassium has been corrected. Continue oral potassium supplementation. Repeat potassium in the morning now that sliding scale insulin will be initiated (2) Paroxysmal atrial fibrillation Current visit: Yes Status: Acute Category: Medical Code(s): I48.0 - Paroxysmal atrial fibrillation Patient has not had any atrial fibrillation while hospitalized. (3) Sinus tachycardia Current visit: Yes Status: Acute Category: Medical Code(s): R00.0 - Tachycardia, unspecified Patient has had intermittent episodes of mild tachycardia. This seems out of proportion to the patient's underlying health and medical issues. Echocardiogram will be checked in the morning (4) Acute bronchospasm Current visit: Yes Status: Acute Category: Medical Code(s): J98.01 - Acute bronchospasm (5) Diabetes mellitus type 2 in nonobese Current visit: Yes Status: Acute Category: Medical Code(s): E11.9 - Type 2 diabetes mellitus without complications Start sliding scale insulin (6) Acute bronchitis Current visit: Yes Status: Acute Category: Medical Code(s): J20.9 - Acute bronchitis, unspecified Patient will be given azithromycin 500 mg p.o.
[2018-08-15 09:17] LABS: Microscopic, Urine URINE MICROSCOPIC (MICROSCOPIC)
[2018-08-15 09:20] LABS: Appearance,Urine CLEAR (Clear); Bilirubin,Urine Negative (Negative); Blood, Urine TRACE-L (Negative); Color,Urine YELLOW (Yellow); Glucose,Urine (UA) 2+ (Negative); Ketones,Urine Negative (Negative); Leukocyte Esterase,Urine Negative (Negative); PH,Urine 6.5 (5.0-8.5); Protein,Urine 1+ (Negative); Specific Gravity, Urine 1.015 (1.005-1.030); Urobilinogen,Urine 0.2 EU/dl (0.2)
[2018-08-15 09:29] LABS: Bacteria,Urine 2+ /lpf; Squamous Epithelial Cell,Urine Occasional #/hpf (0-5)
[2018-08-16 05:51] LABS: Calcium 8.9 mg/dL (8.5-10.1)
--- NOTE | 2018-08-16 07:30 | Progress Note ---
Internal Medicine - PN: Subj *Date: 08/16/18 *Time: 07:28 Interval history: Patient reports feeling a little bit stronger regarding her legs. She still required standby assist when ambulating to the bathroom. Patient slept well. She continues to have cough. Nursing staff notes patient's O2 sats dropped to the 70s while asleep and she exhibited symptoms of sleep apnea. Exam Vital signs and Labs for Last 24 Hours: Temp Pulse Resp BP Pulse Ox 98.1 F 107 H 17 152/83 H 96 08/16/18 04:00 08/16/18 06:09 08/16/18 04:00 08/16/18 04:00 08/16/18 06:09 Laboratory Results - last 24 hr 08/15/18 09:08: Urine Color Yellow, Urine Appearance Clear, Urine pH 6.5, Ur Specific [place] 1.015, Urine Protein 1+, Urine Glucose (UA) 2+, Urine Ketones Negative, Urine Blood Trace-l, Urine Nitrate Negative, Urine Bilirubin Negative, Urine Urobilinogen 0.2, Ur Leukocyte Esterase Negative, Urine WBC 3-5, Ur Squamous Epith Cells Occasional, Urine Bacteria 2+ 08/15/18 11:31: POC Glucose 160 H 08/15/18 16:54: POC Glucose 314 H* 08/15/18 21:31: POC Glucose 290 H 08/16/18 05:07: Sodium 141, Potassium 4.0, Chloride 105, Carbon Dioxide 25, Anion Gap 15.0, BUN 18, Creatinine 0.74, Estimated Creat Clear 41, Estimated GFR 75, Est GFR ( Amer) 90 D, Glucose 155 H, Calcium 8.9 08/16/18 06:16: POC Glucose 129 H I & O for Last 24 hours: Intake & Output 08/13/18 08/14/18 08/15/18 08/16/18 11:59 11:59 11:59 11:59 Intake Total 1432.333 / 7304.470 8671 / 1250 360 / 360 Output Total 400 / 400 850 / 850 Balance 1432.333 / 1432.333 850 / 850 -490 / -490 Weight 136 lb 2 oz 139 lb 1 oz 138 lb 5 oz Microbiology Reports for the Last 24 Hours: Microbiology 08/13/18 19:45 Sputum - Expectorated Sputum Gram Stain - Final 08/13/18 19:45 Sputum - Expectorated Sputum Sputum Culture - Final 08/16/18 04:40 Sputum - Expectorated Sputum Gram Stain - Final Narrative: Patient is awake and alert and sitting up in bed. She is in no distress. Lung exam reveals some expiratory wheezes. Heart has a regular rate and rhythm. Abdomen is thin and soft. Assessment and Plan (1) Hypokalemia Current visit: Yes Status: Acute Category: Medical Code(s): E87.6 - Hypokalemia (2) Paroxysmal atrial fibrillation Current visit: Yes Status: Acute Category: Medical Code(s): I48.0 - Paroxysmal atrial fibrillation (3) Sinus tachycardia Current visit: Yes Status: Acute Category: Medical Code(s): R00.0 - Tachycardia, unspecified (4) Acute bronchospasm Current visit: Yes Status: Acute Category: Medical Code(s): J98.01 - Acute bronchospasm (5) Diabetes mellitus type 2 in nonobese Current visit: Yes Status: Acute Category: Medical Code(s): E11.9 - Type 2 diabetes mellitus without complications (6) Acute bronchitis Current visit: Yes Status: Acute Category: Medical Code(s): J20.9 - Acute bronchitis, unspecified - Assessment and plan all Dx Assessment and Plan for all problems:: 1. PT consult today 2. Echocardiogram is been performed this morning and have spoken with the simulation technician who reports some mild mitral regurgitation and aortic insufficiency. Ejection fraction appeared normal. 3. Await PT consult but anticipate discharge later today. 4. Patient will need home oxygen due to desaturations.
--- NOTE | 2018-08-16 07:34 | Discharge Summary ---
General - General Admission date:: 08/13/18 Discharge date: 08/16/18 HPI HPI: 82-year-old female with history of hypertension and previous hospitalization for GI bleed presented to the office today with weakness. Patient had been seen in the office 48 hours prior with concerns over possible recurrent anemia which in the past had been due to GI bleed. Patient H&H was normal on her August 11 visit. Patient went home and apparently fell. She was in the floor for several hours before being found by family. Since that time she has been unable to ambulate due to lower extremity weakness. She denies any specific joint pains. When there had been very little improvement over the last 24 hours she was brought to the office by family. Workup in the office was significant for tachycardia and an EKG that showed apparent atrial fibrillation. Because the patient's rate was 134, she was complaining of shortness of breath and weakness decision was made to admit the patient to the hospital for a Cardizem drip. However, upon arrival to the floor patient's EKG that was repeated at the hospital has shown sinus tachycardia with PACs. She is currently receiving a fluid bolus. Patient also endorses symptoms of a cough. Hospital Course Hospital Course: Patient was admitted and on telemetry monitoring here her heart rate peaked at 116 and showed a sinus rhythm with PACs. On the day of admission her potassium came back as critically low and patient began both intravenous and oral potassium replacement. After 48 hours of treatment her potassium returned to normal. She was maintained on potassium supplementation the rest of the hospitalization. Etiology of her hypokalemia is unclear. Patient does not have any diuretics listed as part of her medication list although she does use an albuterol inhaler intermittently at home. When patient follows up as an outpatient she will be asked to bring all medications from her home. Her hypokalemia left her quite weak and even after her potassium was replaced it still took an additional day before her lower extremity weakness improved. She was able to ambulate with standby assist. PT was consulted on the day of discharge for recommendations. Anticipate needing home health PT for strengthening. Patient has a walker at home and has been advised to use this. Patient's blood pressure was treated with her home dose of amlodipine. Because of the associated tachycardia patient experience while hospitalized and mild elevation of blood pressure beta-mariama was added to her regimen at discharge. On the morning following admission patient developed worsening cough and on exam had expiratory wheezes. She was started on oral prednisone and a chest x-ray was performed. Chest x-ray did not show any infiltrates. Due to persistent cough and wheezing and rhonchi raising concern for bronchitis azithromycin was added to the patient's regimen orally. She will finish this is an outpatient. Patient's O2 sats did decrease during hospitalization typically at night. Nursing staff noticed signs of sleep apnea. Patient's O2 sats responded to application of oxygen via nasal cannula at 2 L/min. On the the patient was feeling better and decision was made to discharge the patient home. Discharge condition is stable. She will need home health PT, home oxygen. Patient will follow-up in the office in 1 week Objective Vital signs: Temp Pulse Resp BP Pulse Ox 98.1 F 107 H 17 152/83 H 96 08/16/18 04:00 08/16/18 06:09 08/16/18 04:00 08/16/18 04:00 08/16/18 06:09 Results Labs on day of discharge: Labs from last 24 hours 08/16/18 08/16/18 08/15/18 06:16 05:07 21:31 Sodium 141 Potassium 4.0 Chloride 105 Carbon Dioxide 25 Anion Gap 15.0 BUN 18 Creatinine 0.74 Estimated Creat Clear 41 Estimated GFR 75 Est GFR ( Amer) 90 D Glucose 155 H POC Glucose 129 H 290 H Calcium 8.9 Urine Color Urine Appearance Urine pH Ur Specific [place] Urine Protein Urine Glucose (UA) Urine Ketones Urine Blood Urine Nitrate Urine Bilirubin Urine Urobilinogen Ur Leukocyte Esterase Urine WBC Ur Squamous Epith Cells Urine Bacteria 08/15/18 08/15/18 08/15/18 16:54 11:31 09:08 Sodium Potassium Chloride Carbon Dioxide Anion Gap BUN Creatinine Estimated Creat Clear Estimated GFR Est GFR ( Amer) Glucose POC Glucose 314 H* 160 H Calcium Urine Color Yellow Urine Appearance Clear Urine pH 6.5 Ur Specific [place] 1.015 Urine Protein 1+ Urine Glucose (UA) 2+ Urine Ketones Negative Urine Blood Trace-l Urine Nitrate Negative Urine Bilirubin Negative Urine Urobilinogen 0.2 Ur Leukocyte Esterase Negative Urine WBC 3-5 Ur Squamous Epith Cells Occasional Urine Bacteria 2+ DS: Diagnosis - Discharge Diagnosis (1) Hypokalemia Status: Acute (2) Paroxysmal atrial fibrillation Status: Acute (3) Sinus tachycardia Status: Acute (4) Acute bronchospasm Status: Acute (5) Diabetes mellitus type 2 in nonobese Status: Acute (6) Acute bronchitis Status: Acute Discharge Plan - Patient Discharge Instructions ACTIVITY: Continue current activity DIET: continue same diet Patient Instructions: Atrial Fibrillation, Tachycardia, DI for Acute Bronchitis, DI for Hypokalemia, DI for Tachycardia - Follow up Plan Follow up with: Grant Gabriel MD [Primary Care Provider] - 08/23/18 2:00 pm Disposition: Home, Self-Snf Medications: Home Medications Medication Instructions Recorded Confirmed Type Acetaminophen with Codeine 1 tab PO Q6HP PRN 08/13/18 08/13/18 History [Tylenol with Codeine #3 tablet] Albuterol Sulfate [Proair Hfa 2 puffs IH Q6HP PRN 08/13/18 08/13/18 History 90mcg/puff Inh] Amlodipine Besylate [Amlodipine 10 mg PO DAILY 08/13/18 08/13/18 History 10mg Tab] Esomeprazole Magnesium [Nexium 20 mg PO DAILY 08/13/18 08/13/18 History 24Hr] Azithromycin [Zithromax 250mg 250 mg PO DAILY #4 tablet 08/16/18 Rx tab] Medical Supply, Miscellaneous 1 each IH CONT #1 device 08/16/18 Rx [Oxygen Concentrator] Metoprolol Succinate 25 mg PO DAILY #30 tab.er.24h 08/16/18 Rx Potassium Chloride 20 meq PO DAILY #30 tablet.er 08/16/18 Rx predniSONE [Deltasone 10mg tablet] 10 mg PO DAILY 7 Days #30 tab 08/16/18 Rx Prescriptions/Medication Reconciliation: New Metoprolol Succinate 25 mg PO DAILY #30 tab.er.24h Potassium Chloride 20 meq PO DAILY #30 tablet.er predniSONE [Deltasone 10mg tablet] 10 mg PO DAILY 7 Days #30 tab Azithromycin [Zithromax 250mg tab] 250 mg PO DAILY #4 tablet Medical Supply, Miscellaneous [Oxygen Concentrator] 1 each IH CONT #1 device Continue Albuterol Sulfate [Proair Hfa 90mcg/puff Inh] 2 puffs IH Q6HP PRN PRN Reason: Shortness Of Breath Or Wheezing Amlodipine Besylate [Amlodipine 10mg Tab] 10 mg PO DAILY Esomeprazole Magnesium [Nexium 24Hr] 20 mg PO DAILY Acetaminophen with Codeine [Tylenol with Codeine #3 tablet] 1 tab PO Q6HP PRN PRN Reason: PAIN
--- NOTE | 2018-08-16 18:50 | Cardiology Report ---
PROCEDURE: 2-D M-mode and color Doppler study INDICATIONS FOR THE TEST: Chest pain COPD Heart Murmur Tobacco Smoking Palpitations Fatigue Syncope Edema Hypertension+Diabetes Mellitus+ Rheumatic Fever SOB AVILA Obesity Hyperlipidemia Family History HD Additional History PATIENT INFORMATION HEIGHT: 67 WEIGHT:139 GENDER: Female B/P:170/98 2-D/M-MODE INTERPRETATION: 2-D MEASUREMENTS OBSERVED VALUES IN CMS Right Ventricular Dimension (RVDd) 3.0 Interventricular Septum (Thickness)(IVsd) 1.4 Left Ventricular Internal Dimensions(LVIDd) 3.3 Left Ventricular Posterior Wall (Thickness)(LVPWd) 1.1 Aortic Root 2.8 Aortic Cusp Separation 1.3 Left Atrial Dimensions (LAD) 3.5 2D 1. Left atrium is mildly enlarged, left ventricle is normal size, mild concentric left ventricular hypertrophy, visually estimated ejection fraction of 55% with no regional wall motion abnormality. 2. Right atrium and right ventricle are mildly enlarged with normal contractility. 3. The aortic valve is thickened and calcified. 4. The mitral and tricuspid valve leaflets are minimally thickened. 5. The pulmonic valve is poorly visualized. 6. No significant pericardial effusion noted. DOPPLER INTERROGATION: Doppler interrogation of the aortic, mitral and tricuspid valvular presence of mild mitral and tricuspid regurgitation, tricuspid regurgitation jet velocity is inadequate for calculation of the right ventricular systolic pressure, grade 1 diastolic dysfunction seen with tissue Doppler evidence of raised left atrial pressure. CONCLUSION: 1. Mild biatrial enlargement, normal left ventricular size, mild concentric left ventricular hypertrophy, visually estimated ejection fraction of 55% with no regional wall motion abnormality, grade 1 diastolic dysfunction seen with tissue Doppler evidence of raised left atrial pressure. 2. Thickened and calcified aortic valve, without Doppler evidence of aortic stenosis or aortic insufficiency. 3. Mild mitral and tricuspid regurgitation 4. No significant pericardial effusion noted.
== END 2018-08-16 12:48 | disposition home health service (06) ==
LOC: 2ND 15:07 → INTOOBSV 15:07
PROVIDERS: ADMIT Family Medicine; ATTEND Family Medicine
DX: J98.01 Acute bronchospasm; I10 Essential (primary) hypertension; Z79.899 Other long term (current) drug therapy; R06.02 Shortness of breath; Z79.891 Long term (current) use of opiate analgesic; R53.1 Weakness; E87.6 Hypokalemia; E11.9 Type 2 diabetes mellitus without complications; I48.0 Paroxysmal atrial fibrillation; Z79.51 Long term (current) use of inhaled steroids; W19.XXXA Unspecified fall, initial encounter; R00.0 Tachycardia, unspecified
CPT/HCPCS: 36415; 71010; 71045; 80048; 81001; 82962; 83880; 84484; 87070; 87086; 87205; 93005; 93306; 94640; 94761; 97161; G0378

== ENCOUNTER 2018-09-21 21:31 | Observation (INO) ==
[2018-09-21 22:12] LABS: Basophils % 0.4 % (0.1-2.0); Eosinophils # 0.3 K/mm3 (0.0-0.4); Eosinophils % 3.3 % (0.1-12.0); Hematocrit 39.3 % (37.0-47.0); Hemoglobin 13.4 g/dL (12.2-16.2); Lymphocytes # 1.1 K/mm3 (0.7-4.5); Lymphocytes % 14.2 % (10-50); Mean Corpuscular HGB Conc 34.2 g/dL (31.8-35.4); Mean Platelet Volume 7.8 fl (7.4-10.4); Monocytes # 0.5 K/mm3 (0.1-1.0); Monocytes % 6.1 % (1.7-9.3); Neutrophils # 5.9 K/mm3 (1.8-7.8); Platelet Count 200 K/mm3 (142-424); Red Blood Count 4.63 M/mm3 (4.20-5.40); Red Cell Distribution Width 16.2 % (11.5-17.5); White Blood Count 7.8 K/mm3 (4.8-10.8)
[2018-09-21 22:17] LABS: Anion Gap 12.1 mEq/L (5-15); Calcium 11.9 mg/dL (8.5-10.1); Potassium 3.1 mmoL/L (3.5-5.1)
[2018-09-21 23:28] LABS: Microscopic, Urine URINE MICROSCOPIC (MICROSCOPIC)
[2018-09-21 23:29] LABS: Appearance,Urine CLEAR (Clear); Bilirubin,Urine Negative (Negative); Blood, Urine Negative (Negative); Color,Urine YELLOW (Yellow); Glucose,Urine (UA) Negative (Negative); Ketones,Urine Negative (Negative); Leukocyte Esterase,Urine 2+ (Negative); PH,Urine 7.5 (5.0-8.5); Protein,Urine 1+ (Negative); Specific Gravity, Urine 1.015 (1.005-1.030); Urobilinogen,Urine 0.2 EU/dl (0.2)
[2018-09-21 23:39] LABS: Bacteria,Urine 3+ /lpf; Squamous Epithelial Cell,Urine Occasional #/hpf (0-5)
--- NOTE | 2018-09-22 00:11 | Emergency Department Note ---
ED Disposition Clinical Impression: Lumbar facet arthropathy, Foraminal stenosis of lumbar region, Coronary arteriosclerosis, Hypokalemia, Renal insufficiency, Hypercalcemia, Falls frequently UTI (urinary tract infection) Qualifiers: Urinary tract infection type: acute cystitis Hematuria presence: without hematuria Qualified Code(s): N30.00 - Acute cystitis without hematuria Compression fracture of lumbar vertebra Qualifiers: Encounter type: initial encounter Lumbar vertebra fracture level: L1 Fracture type: closed Qualified Code(s): S32.010A - Wedge compression fracture of first lumbar vertebra, initial encounter for closed fracture Compression fracture of L2 lumbar vertebra Qualifiers: Encounter type: initial encounter Fracture type: closed Qualified Code(s): S32.020A - Wedge compression fracture of second lumbar vertebra, initial encounter for closed fracture Osteopenia Qualifiers: Osteopenia location: spine Qualified Code(s): M85.88 - Other specified disorders of bone density and structure, other site Disposition: Admitted as Observation Condition on Discharge: Good - Critical Care Critical Care Time: No Attestation: On 09/21/18, the high probability of a clinically significant, sudden or life threatening deterioration of the following system(s) required my full and direct attention, intervention and personal management. The time I documented below is in addition to time spent performing reported procedures but includes the following listed in this critical care notation. Medical Decision Making - Medical Records Medical records reviewed: Yes: I reviewed the patient's medical records. - [place] Inquiry Pt receiving controlled substance: No Vital Signs: 09/21/18 21:51 09/21/18 22:48 Temperature 98.1 F Temperature Source Temporal Artery Scan Pulse Rate [Left Radial] 89 88 Respiratory Rate 15 16 Blood Pressure [Right Arm] 156/95 H 148/82 H Blood Pressure Mean [Right Arm] 115 104 Blood Pressure Source [Right Arm] Automatic Cuff Blood Pressure Position [Right Arm] Sitting 02 Sat by Pulse Oximetry 96 96 Oxygen Delivery Method Room Air Room Air - Lab Data Lab results reviewed: Yes: I reviewed the patient's lab results. Lab Results 09/21/18 22:02: WBC 7.8, RBC 4.63, Hgb 13.4, Hct 39.3, MCV 85.0, MCH 29.0, MCHC 34.2, RDW 16.2, Plt Count 200, MPV 7.8, Neut % (Auto) 76.0, Lymph % (Auto) 14.2, [place] % (Auto) 6.1, Eos % (Auto) 3.3, Baso % (Auto) 0.4, Neut # (Auto) 5.9, Lymph # (Auto) 1.1, [place] # (Auto) 0.5, Eos # (Auto) 0.3, Baso # (Auto) 0.0 09/21/18 22:02: Sodium 140, Potassium 3.1 L, Chloride 100, Carbon Dioxide 31, Anion Gap 12.1, BUN 23 H, Creatinine 1.27 H, Estimated Creat Clear 33, Estimated GFR 40 L, Est GFR ( Amer) 49 L, Glucose 168 H, Calcium 11.9 H 09/21/18 23:25: Urine Color Yellow, Urine Appearance Clear, Urine pH 7.5, Ur Specific [place] 1.015, Urine Protein 1+, Urine Glucose (UA) Negative, Urine Ketones Negative, Urine Blood Negative, Urine Nitrate Negative, Urine Bilirubin Negative, Urine Urobilinogen 0.2, Ur Leukocyte Esterase 2+ A, Urine WBC 5-10, Ur Squamous Epith Cells Occasional, Urine Bacteria 3+ 09/22/18 00:20: Total Creatine Kinase 40 Result diagrams: 09/21/18 22:02 09/21/18 22:02 Orders (Tests/Meds): ED MEDICATIONS Generic Name Dose Route Start Last Admin Trade Name Freq PRN Reason Stop Dose Admin Sodium Chloride 1,000 mls @ 999 mls/hr 09/21/18 22:00 09/21/18 22:40 Sod Chlor 0.9% 1000ml Bag IV 09/21/18 23:00 999 mls/hr .Q1H1M MARAL Administration Ceftriaxone Sodium 1 gm/ 50 mls @ 100 mls/hr 09/22/18 00:15 09/22/18 00:29 Sodium Chloride IV 10/06/18 00:14 100 mls/hr Q24H MARAL Administration Protocol Discontinued Medications Generic Name Dose Route Start Last Admin Trade Name Freq PRN Reason Stop Dose Admin Ketorolac Tromethamine 15 mg 09/21/18 22:41 09/21/18 22:45 Toradol 30mg/Ml Vial IV 09/21/18 22:42 15 mg ONCE ONE Administration ORDERS Category Date Time Status CT cervical spine wo con Stat Cat Scan 09/21/18 21:[address] head/brain wo con Stat Cat Scan 09/21/18 21:[address] lumbar spine wo con Stat Cat Scan 09/21/18 22:[address] thoracic spine wo con Stat Cat Scan 09/21/18 21:58 Taken Hip XR right minimum 2 views [XR hip RT 2-3V w/pelvis] Exams 09/21/18 22:01 Taken Stat XR chest AP Stat Exams 09/21/18 21:59 Taken Lactic Acid Stat Lab 09/22/18 00:20 Received Blood Culture Stat Micro 09/22/18 00:20 Received Urine Culture Stat Micro 09/21/18 23:25 Received - Radiology Data #1 Image(s): Chest, Pelvis Image Reviewed: Yes I reviewed the patient's radiology image Preliminary Findings: No Fracture Seen - CT Data CT Scan: Head, C-Spine, T-Spine, L-Spine Time Received: 00:[address] Reviewed: Yes: I have viewed the radiologist's interpretation Preliminary Findings: Abnormal - Physician Consults Physician Consulted: sarah Reason -: Admission Fall HPI - General Chief Complaint: Fall Stated Complaint: AO [id number] fell body injuries,weakness Time Seen by Provider: 09/21/18 23:00 Mode of Arrival: Wheelchair Source of Information: Patient, Relative, Medical Record Limitations: No Limitations Description of Symptoms (Recalled from ER Triage Doc. by RN): Pt reports she fell approx 1500 today, states it was a ground level fall and that her "legs just went out from under her" states she fell straight back landing on her back, presents with complaints of generalized weakness, back pain, and pain in right hip, denies any LOC from fall - History of Present Illness HPI Narrative: pt with several falls over the last few days and has generalized weakness and uses walker and lives alone - she was on floor for several hrs - no chest pain or vomiting and no known sz - pt has back pain reported - MD complaint: fall Onset (ago): hour(s) Fall from: standing Fall witnessed: no Place fall occurred: home Loss of consciousness: none Prolonged down time: yes, hour(s) Symptoms prior to fall: none Context: history of frequent falls Location of injury: head, neck, back Location of injury - extremities: Right: thigh Severity: moderate Associated symptoms (after fall): weakness - Related Data Home Medications Medication Instructions Recorded Confirmed Acetaminophen with Codeine 1 tab PO Q6HP PRN 08/13/18 09/21/18 [Tylenol with Codeine #3 tablet] Albuterol Sulfate [Proair Hfa 2 puffs IH Q6HP PRN 08/13/18 09/21/18 90mcg/puff Inh] Amlodipine Besylate [Amlodipine 10 mg PO DAILY 08/13/18 09/21/18 10mg Tab] Esomeprazole Magnesium [Nexium 20 mg PO DAILY 08/13/18 09/21/18 24Hr] Medical Supply, Miscellaneous 1 each IH CONT 09/21/18 09/21/18 [Oxygen Concentrator] Metoprolol Succinate 25 mg PO DAILY 09/21/18 09/21/18 Potassium Chloride 20 meq PO DAILY 09/21/18 09/21/18 Allergies Allergy/AdvReac Type Severity Reaction Status Date / Time No Known Allergies Allergy Verified 09/21/18 21:57 [facility] History - Hepatitis A Screen Drug use history?: No High risk sexual behaviors?: No History of sexually transmitted infection?: No Currently employed?: No Childcare worker?: No Do you have indoor plumbing?: Yes Do you have electricity?: Yes Attestation statement:: This patient has been screened for Hepatitis A risk factors. 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 Other Surgeries: Yes: Colonoscopy, EGD Amputation: No Fractures: No - Social History Smoking Status: Never smoker Alcohol Intake: never Occupational Status: retired Housing: house Household Members: none - Psychiatric History Expresses thoughts of harming self/others: None Suicide Plan Description: No Plan Family Hx:: Coronary Artery Disease, Heart Attack ROS Obtained: Yes All systems reviewed & no additional complaints - Constitutional Constitutional: Denies fever(s), Reports frequent falls, Reports weakness - Eyes Eyes: Denies change in vision - ENT Ears, Nose, Mouth, and Throat: Denies sore throat - Cardiovascular Cardiovascular: Denies chest pain, Denies dyspnea - Respiratory Respiratory: No cough - Genitourinary Female Genitourinary: Denies hematuria - Musculoskeletal Musculoskeletal: Denies joint pain, Denies joint swelling - Integumentary/Breasts Skin/Breast: Denies rash - Neurologic Neurologic: Reports frequent falls, Denies seizure-like activity Physical Exam - General General appearance: alert, in no apparent distress - Head Head exam: normocephalic - Eye Eye exam: Present: PERRL, EOMI. Absent: scleral icterus - ENT ENT exam: Present: mucous membranes dry - Neck Neck exam: Present: trachea midline. Absent: full ROM - Respiratory Respiratory exam: Present: normal lung sounds bilaterally. Absent: respiratory distress - Cardiovascular Cardiovascular exam: Present: regular rate, systolic murmur, +S4 - Abdominal Exam Abdominal exam: Present: soft - Extremities Exam Extremities exam: Absent: calf tenderness - Expanded Lower Extremity Exam Right Hip/Pelvis exam: Present: tenderness, pelvis stable, pain on hip/pelvis palpation, hip pain on leg movement - Neurological Exam Neurological exam: Present: alert, CN II-XII intact - Psychiatric Psychiatric exam: Present: normal affect - Skin Skin exam: Absent: rash
[2018-09-22 04:56] LABS: Albumin Level 3.2 gm/dL (3.4-5.0); Albumin/Globulin Ratio 0.8 (1.1-1.8); Anion Gap 11.5 mEq/L (5-15); Bilirubin,Total 0.5 mg/dL (0.2-1.0); Globulin 4.2 gm/dl (1.3-3.2); Total Protein,Serum 7.4 gm/dL (6.4-8.2)
[2018-09-22 05:15] LABS: Basophils % 0.3 % (0.1-2.0); Eosinophils # 0.2 K/mm3 (0.0-0.4); Eosinophils % 3.5 % (0.1-12.0); Hematocrit 36.8 % (37.0-47.0); Hemoglobin 12.1 g/dL (12.2-16.2); Lymphocytes # 1.2 K/mm3 (0.7-4.5); Lymphocytes % 20.2 % (10-50); Mean Corpuscular Hemoglobin 28.7 pg (27.0-31.2); Mean Platelet Volume 7.8 fl (7.4-10.4); Monocytes # 0.4 K/mm3 (0.1-1.0); Monocytes % 6.4 % (1.7-9.3); Neutrophils # 4.2 K/mm3 (1.8-7.8); Neutrophils % 69.6 % (37.0-80.0); Platelet Count 182 K/mm3 (142-424); Red Blood Count 4.23 M/mm3 (4.20-5.40); Red Cell Distribution Width 16.3 % (11.5-17.5)
[2018-09-22 05:25] LABS: Potassium 2.5 mmoL/L (3.5-5.1)
[2018-09-22 05:26] LABS: Calcium 10.3 mg/dL (8.5-10.1)
--- NOTE | 2018-09-22 07:35 | History & Physical Report ---
*Admission Date: 09/21/18 *Chief complaint: Fall *History of present illness: Patient presented to the emergency department yesterday evening after a fall at home where she reports her legs became weak and gave out on her. Work-up in the emergency department revealed a likely urinary tract infection along with hypokalemia and lumbar compression fractures. Patient denies symptoms of urinary tract infection such as dysuria and urinary frequency. She does admit to progressive weakness in the lower extremities over the preceding few days and had a hospitalization earlier this year for hypokalemia which was causing profound lower extremity weakness. This morning she denies significant pain in the back. [facility] History I have reviewed the patient's past medical history: Yes Medical History: Reports:: Diabetes Mellitus Type 2, Hypertension Denies:: Cancer, MRSA *Have you ever received a pneumonia vaccine?: No *Have you received a flu vaccine this season?: No Other Medical History: Reports: Anemia, Cataracts Other Surgeries: Yes: Colonoscopy, EGD Amputation: No Fractures: No - *Social History Educational Level: Attended High School Smoking Status: Never smoker Alcohol Intake: never *Occupational Status:: retired Housing: house Household Members: none *Travel in the last 8 weeks: None - Psychiatric History Expresses thoughts of harming self/others: None Suicide Plan Description: No Plan Family Hx:: Cancer, Heart Attack, Hypertension Review of Systems - Constitutional Denies body ache(s), Denies chills - Eyes Denies blurry vision, Denies change in vision - *Cardiovascular Denies chest pain, Denies chest pain at rest, Denies chest pain with activity, Denies shortness of breath, Denies irregular heart rhythm - *Respiratory Denies chest congestion, Denies cough, Denies shortness of breath - *Gastrointestinal Denies abdominal pain, Denies belching, Denies bloating - *Musculoskeletal Reports joint pain - *Neurologic Reports frequent falls, Reports weakness, Denies seizure-like activity Meds Home Medications Medication Instructions Recorded Confirmed Type Acetaminophen with Codeine 1 tab PO Q6HP PRN 08/13/18 09/21/18 History [Tylenol with Codeine #3 tablet] Albuterol Sulfate [Proair Hfa 2 puffs IH Q6HP PRN 08/13/18 09/21/18 History 90mcg/puff Inh] Amlodipine Besylate [Amlodipine 10 mg PO DAILY 08/13/18 09/21/18 History 10mg Tab] Esomeprazole Magnesium [Nexium 20 mg PO DAILY 08/13/18 09/21/18 History 24Hr] Metoprolol Succinate 25 mg PO DAILY 09/21/18 09/21/18 History Potassium Chloride 20 meq PO DAILY 09/21/18 09/21/18 History Allergies Allergy/AdvReac Type Severity Reaction Status Date / Time No Known Allergies Allergy Verified 09/21/18 21:57 Exam Vital signs and Labs for Last 24 Hours: Temp Pulse Resp BP Pulse Ox 98.0 F 76 18 190/100 H 93 L 09/22/18 06:51 09/22/18 06:51 09/22/18 06:51 09/22/18 06:51 09/22/18 06:51 Laboratory Results - last 24 hr 09/21/18 22:02: WBC 7.8, RBC 4.63, Hgb 13.4, Hct 39.3, MCV 85.0, MCH 29.0, MCHC 34.2, RDW 16.2, Plt Count 200, MPV 7.8, Neut % (Auto) 76.0, Lymph % (Auto) 14.2, [place] % (Auto) 6.1, Eos % (Auto) 3.3, Baso % (Auto) 0.4, Neut # (Auto) 5.9, Lymph # (Auto) 1.1, [place] # (Auto) 0.5, Eos # (Auto) 0.3, Baso # (Auto) 0.0 09/21/18 22:02: Sodium 140, Potassium 3.1 L, Chloride 100, Carbon Dioxide 31, Anion Gap 12.1, BUN 23 H, Creatinine 1.27 H, Estimated Creat Clear 33, Estimated GFR 40 L, Est GFR ( Amer) 49 L, Glucose 168 H, Calcium 11.9 H 09/21/18 23:25: Urine Color Yellow, Urine Appearance Clear, Urine pH 7.5, Ur Specific [place] 1.015, Urine Protein 1+, Urine Glucose (UA) Negative, Urine Ketones Negative, Urine Blood Negative, Urine Nitrate Negative, Urine Bilirubin Negative, Urine Urobilinogen 0.2, Ur Leukocyte Esterase 2+ A, Urine WBC 5-10, Ur Squamous Epith Cells Occasional, Urine Bacteria 3+ 09/22/18 00:20: Total Creatine Kinase 40 09/22/18 00:20: Lactate 1.2 09/22/18 04:00: Troponin I < 0.02 09/22/18 04:00: WBC 6.0, RBC 4.23, Hgb 12.1 L, Hct 36.8 L, MCV 87.0, MCH 28.7, MCHC 33.0, RDW 16.3, Plt Count 182, MPV 7.8, Neut % (Auto) 69.6, Lymph % (Auto) 20.2, [place] % (Auto) 6.4, Eos % (Auto) 3.5, Baso % (Auto) 0.3, Neut # (Auto) 4.2, Lymph # (Auto) 1.2, [place] # (Auto) 0.4, Eos # (Auto) 0.2, Baso # (Auto) 0.0 09/22/18 04:00: Sodium 143, Potassium 2.5 L*, Chloride 104, Carbon Dioxide 30, Anion Gap 11.5, BUN 19 H, Creatinine 1.10 H, Estimated Creat Clear 35, Estimated GFR 47 L, Est GFR ( Amer) 57 L, Glucose 124 H D, Calcium 10.3 H D, Magnesium 1.7, Total Bilirubin 0.5, AST 10 L, ALT 17, Alkaline Phosphatase 42 L, Total Protein 7.4, Albumin 3.2 L, Globulin 4.2 H, Albumin/Globulin Ratio 0.8 L I & O for Last 24 hours: Intake & Output 09/19/18 09/20/18 09/21/18 09/22/18 11:59 11:59 11:59 11:59 Weight 129 lb 2 oz Narrative: Patient is awake and sitting up in bed this morning. She does not appear to be in pain. Oropharynx is moist. Neck without lymphadenopathy or carotid bruits. Lungs are clear to auscultation. Heart has a regular rate and rhythm. Abdomen is soft and nontender. She has active range of motion in all of her extremities. Gait was not tested. Neurologically she has motor and sensation function intact. There is no unilateral motor deficit Assessment and Plan (1) Hypokalemia Current visit: Yes Status: Acute Category: Medical Code(s): E87.6 - Hypokalemia (2) Compression fracture of L2 lumbar vertebra Current visit: Yes Status: Acute Qualifiers: Encounter type: initial encounter Fracture type: closed Qualified Code(s): S32.020A - Wedge compression fracture of second lumbar vertebra, initial encounter for closed fracture Category: Medical Code(s): S32.020A - Wedge compression fracture of second lumbar vertebra, initial encounter for closed fracture (3) Compression fracture of lumbar vertebra Current visit: Yes Status: Acute Qualifiers: Encounter type: initial encounter Lumbar vertebra fracture level: L1 Fracture type: closed Qualified Code(s): S32.010A - Wedge compression fracture of first lumbar vertebra, initial encounter for closed fracture Category: Medical Code(s): S32.000A - Wedge compression fracture of unspecified lumbar vertebra, initial encounter for closed fracture (4) UTI (urinary tract infection) Current visit: Yes Status: Suspected Qualifiers: Urinary tract infection type: acute cystitis Hematuria presence: without hematuria Qualified Code(s): N30.00 - Acute cystitis without hematuria Category: Medical Code(s): N39.0 - Urinary tract infection, site not specified - Assessment and plan all Dx Assessment and Plan for all problems:: 1. Replace potassium and once potassium has reached a more appropriate level PT consult for mobility evaluation 2. Patient will be ordered Tylenol as well as something slightly stronger for any pain related to her compression fractures 3. Home medicines 4. Continue Rocephin until urine culture is resulted
--- NOTE | 2018-09-22 07:38 | Pharmacy Consult Notes ---
[facility] Pharmacy VTE Monitoring - Patient Demographics Admission date: 09/22/18 Report Date: 09/22/18 Time: 07:38 Allergies/Adverse Reactions: Patient Allergies No Known Allergies Allergy (Verified 09/21/18 21:57) Height: 1.68 m Weight: 58.57 kg Patient Problems: Current Active Problems (Updated 09/22/18 @ 07:36 by Grant Gabriel MD) Hypokalemia (Acute) Compression fracture of lumbar vertebra (Acute) Compression fracture of L2 lumbar vertebra (Acute) Lumbar facet arthropathy (Acute) Foraminal stenosis of lumbar region (Acute) Osteopenia (Acute) Coronary arteriosclerosis (Acute) Renal insufficiency (Acute) Hypercalcemia (Acute) Falls frequently (Acute) - VTE Risk Labs: VTE Related Lab Results Hgb 12.1 g/dL (12.2-16.2) L 09/22/18 04:00 Hct 36.8 % (37.0-47.0) L 09/22/18 04:00 Plt Count 182 K/mm3 (142-424) 09/22/18 04:00 BUN 19 mg/dL (7-18) H 09/22/18 04:00 Creatinine 1.10 mg/dL (0.55-1.02) H 09/22/18 04:00 Estimated Creat Clear 35 mL/min (50-200) 09/22/18 04:00 Was VTE Risk Assessment Performed: Yes VTE Score: 4 VTE Risk Level: Low Risk Clinical Trial Participant: No - Prophylaxis Types of VTE Prophylaxis: TEDS Knee High Location of Applied Device: Bilateral Lower Extremeties
[2018-09-23 06:57] LABS: Anion Gap 14.8 mEq/L (5-15); Calcium 9.8 mg/dL (8.5-10.1); Potassium 3.8 mmoL/L (3.5-5.1)
--- NOTE | 2018-09-23 07:12 | Progress Note ---
Internal Medicine - PN: Subj *Date: 09/23/18 *Time: 07:10 Interval history: Patient is without complaints this morning. She denies any significant back pain. She does report some pain in her right side. She denies shortness of breath. Exam Vital signs and Labs for Last 24 Hours: Temp Pulse Resp BP Pulse Ox 97.8 F 95 H 16 179/92 H 96 09/23/18 04:00 09/23/18 04:00 09/23/18 04:00 09/23/18 06:00 09/23/18 04:00 Laboratory Results - last 24 hr 09/22/18 07:25: Troponin I < 0.02 09/23/18 05:40: Sodium 140, Potassium 3.8 D, Chloride 103, Carbon Dioxide 26, Anion Gap 14.8, BUN 15, Creatinine 1.03 H, Estimated Creat Clear 38, Estimated GFR 51 L, Est GFR ( Amer) 62, Glucose 160 H, Calcium 9.8 I & O for Last 24 hours: Intake & Output 09/20/18 09/21/18 09/22/18 09/23/18 11:59 11:59 11:59 11:59 Intake Total 360 / 360 3512 / 3512 Balance 360 / 360 3512 / 3512 Weight 129 lb 2 oz 129 lb 8 oz Microbiology Reports for the Last 24 Hours: Microbiology 09/21/18 23:25 Urine,Clean Catch Urine Culture - Preliminary NO GROWTH AFTER 24 HOURS Narrative: She is in no distress. Oropharynx moist and clear. Lungs are clear. Heart has a regular rate and rhythm. Abdomen is soft. Assessment and Plan (1) Hypokalemia Current visit: Yes Status: Acute Category: Medical Code(s): E87.6 - Hypokalemia Improved, DC IV fluids and continue oral potassium replacement. Repeat BMP tomorrow (2) Compression fracture of L2 lumbar vertebra Current visit: Yes Status: Acute Qualifiers: Encounter type: initial encounter Fracture type: closed Qualified Code(s): S32.020A - Wedge compression fracture of second lumbar vertebra, initial encounter for closed fracture Category: Medical Code(s): S32.020A - Wedge compression fracture of second lumbar vertebra, initial encounter for closed fracture (3) Compression fracture of lumbar vertebra Current visit: Yes Status: Acute Qualifiers: Encounter type: initial encounter Lumbar vertebra fracture level: L1 Fracture type: closed Qualified Code(s): S32.010A - Wedge compression fracture of first lumbar vertebra, initial encounter for closed fracture Category: Medical Code(s): S32.000A - Wedge compression fracture of unspecified lumbar vertebra, initial encounter for closed fracture (4) UTI (urinary tract infection) Current visit: Yes Status: Suspected Qualifiers: Urinary tract infection type: acute cystitis Hematuria presence: without hematuria Qualified Code(s): N30.00 - Acute cystitis without hematuria Category: Medical Code(s): N39.0 - Urinary tract infection, site not specified At 24 hours culture has shown no growth. Continue antibiotics for additional 24 hours (5) Falls frequently Current visit: Yes Status: Acute Category: Medical Code(s): R29.6 - Repeated falls PT eval today with care management consult for placement requested by patient and family before transitioning back to home
[2018-09-24 06:41] LABS: Anion Gap 15.6 mEq/L (5-15); Calcium 9.9 mg/dL (8.5-10.1); Potassium 4.6 mmoL/L (3.5-5.1)
--- NOTE | 2018-09-24 07:17 | Discharge Summary ---
General - General Admission date:: 09/22/18 Discharge date: 09/24/18 HPI HPI: Patient presented to the emergency department yesterday evening after a fall at home where she reports her legs became weak and gave out on her. Work-up in the emergency department revealed a likely urinary tract infection along with hypokalemia and lumbar compression fractures. Patient denies symptoms of urinary tract infection such as dysuria and urinary frequency. She does admit to progressive weakness in the lower extremities over the preceding few days and had a hospitalization earlier this year for hypokalemia which was causing profound lower extremity weakness. This morning she denies significant pain in the back. Hospital Course Hospital Course: Patient was admitted and her potassium was replaced with both IV and oral potassium. With and 2 days patient's her potassium had returned to normal level and was above 4 on the day of discharge. At discharge her potassium supplement will be changed to 20 mEq twice daily of potassium chloride. Etiology of her hypokalemia however continues to remain a mystery. Based on medications overuse of albuterol could lead to hypokalemia although the patient admits to following instructions on use with maximum usage rate of 4 times per day. Because patient had fallen imaging was performed on admission and lumbar spine films as well as CT showed compression fractures of the lumbar spine. Patient however did not complain of any significant back pain while hospitalized and x- rays were ultimately interpreted as what appear to be chronic compression fractures. As pain was not an issue there is no plan to further investigate these compression fractures regarding intervention. Patient was suspected of having a urinary tract infection on admission and was started on Rocephin intravenously. On the day of discharge her urine culture is growing gram-positive cocci. At discharge she will be placed on cephalexin for 7 days. Patient had a fall at home likely contributed to by weakness from her hypokalemia. Physical therapy evaluated the patient while hospitalized and recommended short-term rehab. Initial plan had been for patient to be transferred to [facility] for continued short-term rehab. However patient's insurance denied this request. Home health was arranged and patient was discharged home Objective Vital signs: Temp Pulse Resp BP Pulse Ox 98.4 F 78 17 170/88 H 95 09/24/18 04:00 09/24/18 04:00 09/24/18 04:00 09/24/18 04:00 09/24/18 04:00 Results Labs on day of discharge: Labs from last 24 hours 09/24/18 09/21/18 05:37 23:25 Sodium 140 Potassium 4.6 D Chloride 105 Carbon Dioxide 24 Anion Gap 15.6 H BUN 18 Creatinine 1.17 H Estimated Creat Clear 34 Estimated GFR 44 L Est GFR ( Amer) 53 L Glucose 131 H Calcium 9.9 Urine Color Yellow Urine Appearance Clear Urine pH 7.5 Ur Specific [place] 1.015 Urine Protein 1+ Urine Glucose (UA) Negative Urine Ketones Negative Urine Blood Negative Urine Nitrate Negative Urine Bilirubin Negative Urine Urobilinogen 0.2 Ur Leukocyte Esterase 2+ A Urine WBC 5-10 Ur Squamous Epith Cells Occasional Urine Bacteria 3+ Preliminary micro results at discharge 09/22/18 00:20 Blood Culture - Preliminary Blood NO GROWTH AFTER 48 HOURS 09/22/18 00:20 Blood Culture - Preliminary Blood NO GROWTH AFTER 48 HOURS 09/21/18 23:25 Urine Culture - Preliminary Urine,Clean Catch Gram Positive Cocci DS: Diagnosis - Discharge Diagnosis (1) Hypokalemia Status: Acute (2) Compression fracture of L2 lumbar vertebra Status: Acute (3) Compression fracture of lumbar vertebra Status: Acute (4) UTI (urinary tract infection) Status: Suspected (5) Falls frequently Status: Acute Discharge Plan - Patient Discharge Instructions ACTIVITY: Continue current activity DIET: continue same diet Patient Instructions: DI for Urinary Tract Infection (UTI), How to Prevent Falls, High-Potassium Diet - Follow up Plan Follow up with: Grant Gabriel MD [Staff Physician] - 1 week Disposition: Home, Self-Jail Medications: Home Medications Medication Instructions Recorded Confirmed Type Albuterol Sulfate [Proair Hfa 2 puffs IH Q6HP PRN 08/13/18 09/21/18 History 90mcg/puff Inh] Amlodipine Besylate [Amlodipine 10 mg PO DAILY 08/13/18 09/21/18 History 10mg Tab] Esomeprazole Magnesium [Nexium 20 mg PO DAILY 08/13/18 09/21/18 History 24Hr] Metoprolol Succinate 25 mg PO DAILY 09/21/18 09/21/18 History Calcium Carbonate [Calcium] 600 mg PO DAILY 09/22/18 09/22/18 History Cholecalciferol (Vitamin D3) 2,000 unit PO DAILY 09/22/18 09/22/18 History [Vitamin D3] Metformin HCl 500 mg PO BIDWM 09/22/18 09/22/18 History Multivit-Min/FA/Lycopen/Lutein 1 each PO DAILY 09/22/18 09/22/18 History [Centrum Silver Tablet] Potassium Chloride 20 meq PO BID #0 09/24/18 09/21/18 Rx cephALEXin [Cephalexin 500mg Tab] 500 mg PO QID #28 tab 09/24/18 Rx Prescriptions/Medication Reconciliation: New cephALEXin [Cephalexin 500mg Tab] 500 mg PO QID #28 tab Continued Albuterol Sulfate [Proair Hfa 90mcg/puff Inh] 2 puffs IH Q6HP PRN PRN Reason: Shortness Of Breath Or Wheezing Amlodipine Besylate [Amlodipine 10mg Tab] 10 mg PO DAILY Esomeprazole Magnesium [Nexium 24Hr] 20 mg PO DAILY Metoprolol Succinate 25 mg PO DAILY Metformin HCl 500 mg PO BIDWM Cholecalciferol (Vitamin D3) [Vitamin D3] 2,000 unit PO DAILY Calcium Carbonate [Calcium] 600 mg PO DAILY Multivit-Min/FA/Lycopen/Lutein [Centrum Silver Tablet] 1 each PO DAILY Changed Potassium Chloride 20 meq PO BID #0
== END 2018-09-24 13:18 | disposition home health service (06) ==
LOC: 2ND 21:31 → ER 21:31 → 2ND 09-22 01:18
PROVIDERS: ADMIT Internal Medicine Adolescent Medicine; ATTEND Family Medicine
CPT/HCPCS: 36415; 70450; 71010; 71045; 72125; 72128; 72131; 73502; 80048; 80053; 81001; 82550; 83605; 83735; 84484; 85025; 87040; 87086; 87088; 96365; 96367; 96375; 97110; 97116; 97161; 99284; G0378

== ENCOUNTER 2018-10-03 12:56 | Observation (INO) ==
[2018-10-03 13:18] LABS: Basophils % 0.4 % (0.1-2.0); Eosinophils # 0.3 K/mm3 (0.0-0.4); Hematocrit 41.2 % (37.0-47.0); Hemoglobin 13.9 g/dL (12.2-16.2); Lymphocytes # 1.1 K/mm3 (0.7-4.5); Lymphocytes % 13.4 % (10-50); Mean Corpuscular HGB Conc 33.6 g/dL (31.8-35.4); Mean Corpuscular Hemoglobin 29.8 pg (27.0-31.2); Mean Corpuscular Volume 88.5 fl (81-99); Monocytes # 0.5 K/mm3 (0.1-1.0); Monocytes % 5.9 % (1.7-9.3); Neutrophils % 76.2 % (37.0-80.0); Platelet Count 204 K/mm3 (142-424); Red Blood Count 4.65 M/mm3 (4.20-5.40); Red Cell Distribution Width 15.5 % (11.5-17.5); White Blood Count 7.9 K/mm3 (4.8-10.8)
--- NOTE | 2018-10-03 13:18 | Emergency Department Note ---
ED Disposition Clinical Impression: Dehydration, Hypercalcemia Acute renal failure Qualifiers: Acute renal failure type: unspecified Qualified Code(s): N17.9 - Acute kidney failure, unspecified UTI (urinary tract infection) Qualifiers: Urinary tract infection type: site unspecified Hematuria presence: without hematuria Qualified Code(s): N39.0 - Urinary tract infection, site not specified Disposition: Admitted as Observation Condition on Discharge: Fair Referrals: Grant Gabriel MD [Primary Care Provider] - - Critical Care Critical Care Time: Yes Attestation: On , the high probability of a clinically significant, sudden or life threatening deterioration of the following system(s) required my full and direct attention, intervention and personal management. The time I documented below is in addition to time spent performing reported procedures but includes the following listed in this critical care notation. Total Critical Care Time: 30 Vital system(s) involved:: Metabolic Failure My critical care processes included: Assessment & monitoring of V/S, Initial and Re-exams, Data Review/Interpretation, Coordinating Care, Medication Orders and management, Documentation Medical Decision Making - Maynor Inquiry Pt receiving controlled substance: No Vital Signs: 10/03/18 13:04 10/03/18 13:47 10/03/18 14:00 Temperature 97.8 F Temperature Source Oral Pulse Rate [Right Apical] 89 78 78 Respiratory Rate 18 16 Blood Pressure [Right Arm] 149/86 H 143/92 H 153/85 H Blood Pressure Mean [Right Arm] 107 109 107 Blood Pressure Source [Right Arm] Automatic Cuff Blood Pressure Position [Right Arm] Sitting 02 Sat by Pulse Oximetry 97 93 L 96 Oxygen Delivery Method Room Air Room Air - Lab Data Lab Results 10/03/18 13:08: WBC 7.9, RBC 4.65, Hgb 13.9, Hct 41.2, MCV 88.5, MCH 29.8, MCHC 33.6, RDW 15.5, Plt Count 204, MPV 8.0, Neut % (Auto) 76.2, Lymph % (Auto) 13.4, Catron % (Auto) 5.9, Eos % (Auto) 4.0, Baso % (Auto) 0.4, Neut # (Auto) 6.0, Lymph # (Auto) 1.1, Catron # (Auto) 0.5, Eos # (Auto) 0.3, Baso # (Auto) 0.0 10/03/18 13:08: Sodium 139, Potassium 4.0, Chloride 98, Carbon Dioxide 30, Anion Gap 11.0, BUN 27 H, Creatinine 2.14 H, Estimated Creat Clear 20, Estimated GFR 22 L, Est GFR ( Amer) 27 L, Glucose 204 H, Calcium 13.8 H*, Total Bilirubin 0.5, AST 10 L, ALT 19, Alkaline Phosphatase 55, Total Protein 8.7 H, Albumin 3.8, Globulin 4.9 H, Albumin/Globulin Ratio 0.8 L 10/03/18 13:08: Total Creatine Kinase 31, CK-MB (CK-2) 0.7, CK-MB (CK-2) Rel Index 2.3, Troponin I < 0.02 10/03/18 13:08: TSH 3.37, Free T4 Index 2.1 L, Thyroxine (T4) 5.4, T3 Uptake 39 Result diagrams: 10/03/18 13:08 10/03/18 13:08 Orders (Tests/Meds): ED MEDICATIONS Discontinued Medications Generic Name Dose Route Start Last Admin Trade Name Freq PRN Reason Stop Dose Admin Sodium Chloride 1,000 ml 10/03/18 13:36 10/03/18 13:37 Sod Chlor 0.9% 1000ml Bag IV 10/03/18 13:37 1,000 ml BOLUS ONE Administration ORDERS Category Date Time Status Parathyroid Hormone Intact Routine Lab 10/03/18 14:10 Ordered Urinalysis and Microscopic Stat Lab 10/03/18 13:05 Ordered Vitamin D 25 Hydroxy Routine Lab 10/03/18 14:10 Ordered - ECG Data Tracing #1 EKG interpreted by Prasad Rome MD: Rhythm: sinus Rate: 83 [place]: normal Ectopy: none Conduction: normal ST Segment Changes: none T Wave Changes: none Q Waves: none No evidence of acute ischemia or injury Baseline artifact and wander present, but I consider the EKG adequate for accurate interpretation. - Physician Consults Physician Consulted: Harvey Time: 14:12 Reason -: Admission Comment/Response: Agrees to admit the patient to the hospital. We discussed the patient's clinical information, including history, exam, laboratory and radiology results and ED course. Per hospital procedure, I will write temporary bridge inpatient orders on the patient. Specific orders requested by the admitting physician: 25 hydroxy vitamin D level, intact parathyroid hormone level, continue IV fluids, Rocephin 1 g IV. Medical Decision Narrative: 1:38 PM: Patient has elevated calcium. She was also hypercalcemic on her last admission, but not as high. Calcium came down to normal by time of discharge. She does take calcium at home. 2:13 PM: Urine culture from last admission showed Aerococcus, sensitivities not performed. General Adult HPI - General Chief complaint: Weakness Stated complaint: AO 1040 fell, weakness Time Seen by Provider: 10/03/18 13:18 Mode of Arrival: Ambulatory Limitations: No Limitations Description of Symptoms (Recalled from ER Triage Doc. by RN): PT arrived to the ED with c/o on going weakness for months. Pt states she fell today in the bethroom and had a hard time getting up. PT denies hitting head or LOC. PT states she has been hospitalized twice for weakness. - History of Present Illness HPI narrative: Complains of generalized weakness. This is been a recurrent problem. Just released from the hospital on 09/24/2018 after 2-day stay here for the same complaint. Family states that she started getting weak about 1 week ago culminating in a fall this morning when she got up after using the bathroom. She says she did not injure herself. She has had a little diarrhea. No vomiting. Family says she has been eating and drinking well. Denies trouble breathing. No fever. She has had a couple of episodes of hypokalemia causing weakness. She was admitted here 08/16/2018 for weakness as well. Also admitted to this hospital in April for near syncope and was found to be anemic. Had an upper endoscopy which was negative. Family states that she has had a Cologuard which is positive, but she refuses colonoscopy. Anemia has not recurred. Recently started on hydrochlorothiazide. - Related Data Home Medications Medication Instructions Recorded Confirmed Albuterol Sulfate [Proair Hfa 2 puffs IH Q6HP PRN 08/13/18 10/03/18 90mcg/puff Inh] Amlodipine Besylate [Amlodipine 10 mg PO DAILY 08/13/18 10/03/18 10mg Tab] Metoprolol Succinate 25 mg PO DAILY 09/21/18 10/03/18 Calcium Carbonate [Calcium] 600 mg PO DAILY 09/22/18 10/03/18 Cholecalciferol (Vitamin D3) 2,000 unit PO DAILY 09/22/18 10/03/18 [Vitamin D3] Metformin HCl 500 mg PO BIDWM 09/22/18 10/03/18 Multivit-Min/FA/Lycopen/Lutein 1 each PO DAILY 09/22/18 10/03/18 [Centrum Silver Tablet] cephALEXin [Cephalexin 500mg Tab] 500 mg PO QID 10/03/18 10/03/18 hydroCHLOROthiazide 12.5 mg PO DAILY 10/03/18 10/03/18 [Hydrochlorothiazide 12.5mg Tab] Previous Rx's Medication Instructions Recorded Potassium Chloride 20 meq PO BID #0 09/24/18 Allergies Allergy/AdvReac Type Severity Reaction Status Date / Time No Known Allergies Allergy Verified 09/21/18 21:57 [facility] History - Hepatitis A Screen Drug use history?: No High risk sexual behaviors?: No History of sexually transmitted infection?: No Currently employed?: No Childcare worker?: No Do you have indoor plumbing?: Yes Do you have electricity?: Yes Attestation statement:: This patient has been screened for Hepatitis A risk factors. 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 Other Surgeries: Yes: Colonoscopy, EGD Amputation: No Fractures: No - Social History Smoking Status: Never smoker Alcohol Intake: never Occupational Status: retired Housing: house Household Members: none - Psychiatric History Expresses thoughts of harming self/others: None Suicide Plan Description: No Plan Family Hx:: Cancer, Heart Attack, Hypertension ROS Obtained: Yes All systems reviewed & no additional complaints - Constitutional Constitutional: Reports fatigue, Denies fever(s), Reports weakness - Cardiovascular Cardiovascular: Denies chest pain - Respiratory Respiratory: No cough, No dyspnea - Gastrointestinal Gastrointestingal: Reports: diarrhea. Denies: abdominal pain, nausea, vomiting - Genitourinary Female Genitourinary: Denies difficulty voiding - Musculoskeletal Musculoskeletal: Denies joint pain, Denies back pain, Denies neck pain - Neurologic Neurologic: Denies focal weakness, Denies headache(s) Physical Exam - General General appearance: alert, in no apparent distress - Head Head exam: atraumatic, normocephalic - Eye Eye exam: Present: normal appearance, EOMI - ENT ENT exam: Present: mucous membranes dry - Neck Neck exam: Present: normal inspection, trachea midline - Chest Chest inspection: Present: normal inspection, symmetric chest wall rise - Respiratory Respiratory exam: Present: normal lung sounds bilaterally. Absent: respiratory distress - Cardiovascular Cardiovascular exam: Present: regular rate, normal rhythm, normal heart sounds - Abdominal Exam Abdominal exam: Present: soft. Absent: distention, tenderness - Extremities Exam Extremities exam: Present: normal inspection. Absent: tenderness - Neurological Exam Neurological exam: Present: alert, oriented X3, CN II-XII intact. Absent: motor sensory deficit - Psychiatric Psychiatric exam: Present: normal affect, normal mood - Skin Skin exam: Present: warm, dry
[2018-10-03 13:31] LABS: Albumin Level 3.8 gm/dL (3.4-5.0); Albumin/Globulin Ratio 0.8 (1.1-1.8); Bilirubin,Total 0.5 mg/dL (0.2-1.0); Globulin 4.9 gm/dl (1.3-3.2); Total Protein,Serum 8.7 gm/dL (6.4-8.2)
[2018-10-03 13:32] LABS: Calcium 13.8 mg/dL (8.5-10.1)
[2018-10-03 14:02] LABS: Creatine Kinase 31 U/L (26-192); Free Thyroxine Index 2.1 ug/dL (5.93-13.13); Thyroid Stimulating Hormone 3.37 uIU/ml (0.358-3.740)
[2018-10-03 14:15] LABS: Microscopic, Urine URINE MICROSCOPIC (MICROSCOPIC)
[2018-10-03 14:18] LABS: Appearance,Urine CLEAR (Clear); Bilirubin,Urine Negative (Negative); Blood, Urine Negative (Negative); Color,Urine YELLOW (Yellow); Glucose,Urine (UA) Negative (Negative); Ketones,Urine Negative (Negative); Leukocyte Esterase,Urine Negative (Negative); Protein,Urine 1+ (Negative); Urobilinogen,Urine 0.2 EU/dl (0.2)
[2018-10-03 14:31] LABS: Bacteria,Urine 1+ /lpf
[2018-10-04 07:00] LABS: Anion Gap 12.6 mEq/L (5-15); Potassium 3.6 mmoL/L (3.5-5.1)
--- NOTE | 2018-10-04 07:30 | Pharmacy Consult Notes ---
[facility] Pharmacy VTE Monitoring - Patient Demographics Admission date: 10/03/18 Report Date: 10/04/18 Time: 07:30 Allergies/Adverse Reactions: Patient Allergies No Known Allergies Allergy (Verified 09/21/18 21:57) Height: 1.7 m Weight: 60.895 kg Patient Problems: Current Active Problems (Updated 10/03/18 @ 14:15 by Prasad Rome MD) Hypercalcemia (Acute) Acute renal failure (Acute) Dehydration (Acute) UTI (urinary tract infection) (Acute) - VTE Risk Labs: VTE Related Lab Results Hgb 13.9 g/dL (12.2-16.2) 10/03/18 13:08 Hct 41.2 % (37.0-47.0) 10/03/18 13:08 Plt Count 204 K/mm3 (142-424) 10/03/18 13:08 BUN 21 mg/dL (7-18) H 10/04/18 06:06 Creatinine 1.54 mg/dL (0.55-1.02) H D 10/04/18 06:06 Estimated Creat Clear 26 mL/min (50-200) 10/04/18 06:06 Was VTE Risk Assessment Performed: Yes VTE Score: 2 Clinical Trial Participant: No - Prophylaxis VTE Prophylaxis Ordered?: Yes Types of VTE Prophylaxis: TEDS Knee High Location of Applied Device: Bilateral Lower Extremeties
[2018-10-04 07:48] LABS: Calcium 11.3 mg/dL (8.5-10.1)
--- NOTE | 2018-10-04 07:52 | History & Physical Report ---
*Admission Date: 10/03/18 *Chief complaint: Fall at home *History of present illness: 82-year-old female return to the emergency department yesterday after a fall at home in her bathroom. Patient was just discharged from the hospital on September 24 after falls at home due to weakness. Patient tells me she was in her bathroom when her legs became weak and gave out on her and she fell back against the wall. She has been ambulating with a walker at home. This is her first fall since returning home. She reports the strength in her legs has a tendency to come and go throughout the day. There will be times when she feels steady on her feet with a walker and there will will be times when she feels unsteady and almost afraid to walk. In the emergency department she underwent evaluation as hypokalemia has been a recurring problem for the patient. However this time the patient was found to be hypercalcemic. In addition to this hydrochlorothiazide was listed as a medicine on admission this time however this was not a discharge medication during her last hospitalization. Patient does not recall when she started taking the hydrochlorothiazide. Patient had not been seen in follow-up in the office yet so this was not prescribed by my office since discharge. During her last hospitalization it was believe she would benefit from detention facility but this was declined by her insurance. [facility] History I have reviewed the patient's past medical history: Yes Medical History: Reports:: Diabetes Mellitus Type 2, Hypertension Denies:: Cancer, Diabetes Mellitus Type 1, MRSA *Have you ever received a pneumonia vaccine?: No *Have you received a flu vaccine this season?: No Other Medical History: Reports: Anemia, Cataracts Other Surgeries: Yes: Colonoscopy, EGD Amputation: No Fractures: No - *Social History Educational Level: Completed Grade School Smoking Status: Never smoker Alcohol Intake: never *Occupational Status:: retired Housing: house Household Members: none *Travel in the last 8 weeks: None - Psychiatric History Expresses thoughts of harming self/others: None Suicide Plan Description: No Plan Family Hx:: Cancer, Heart Attack, Hypertension Review of Systems - Review of Systems Review of systems:: pertinent systems reviewed and negative unless documented below - Constitutional Denies body ache(s), Denies chills - Eyes Denies blurry vision, Denies change in vision - *Cardiovascular Denies chest pain, Denies chest pain at rest, Denies chest pain with activity - *Respiratory Denies change in phlegm color, Denies chest congestion, Denies cough - *Musculoskeletal Reports back pain, Reports limited joint movement, Reports muscle weakness, Reports stiffness, Denies joint swelling, Denies loss of height, Denies muscle cramps - *Neurologic Reports abnormal walking, Reports abnormal hearing, Reports unsteadiness, Reports frequent falls, Reports lack of coordination, Reports weakness, Denies abnormal movements, Denies localized weakness, Denies headache(s), Denies dizziness Meds Home Medications Medication Instructions Recorded Confirmed Type Albuterol Sulfate [Proair Hfa 2 puffs IH Q6HP PRN 08/13/18 10/03/18 History 90mcg/puff Inh] Amlodipine Besylate [Amlodipine 10 mg PO DAILY 08/13/18 10/03/18 History 10mg Tab] Metoprolol Succinate 25 mg PO DAILY 09/21/18 10/03/18 History Calcium Carbonate [Calcium] 600 mg PO DAILY 09/22/18 10/03/18 History Cholecalciferol (Vitamin D3) 2,000 unit PO DAILY 09/22/18 10/03/18 History [Vitamin D3] Metformin HCl 500 mg PO BIDWM 09/22/18 10/03/18 History Multivit-Min/FA/Lycopen/Lutein 1 each PO DAILY 09/22/18 10/03/18 History [Centrum Silver Tablet] Potassium Chloride 20 meq PO BID #0 09/24/18 10/03/18 Rx cephALEXin [Cephalexin 500mg Tab] 500 mg PO QID 10/03/18 10/03/18 History hydroCHLOROthiazide 12.5 mg PO DAILY 10/03/18 10/03/18 History [Hydrochlorothiazide 12.5mg Tab] Allergies Allergy/AdvReac Type Severity Reaction Status Date / Time No Known Allergies Allergy Verified 09/21/18 21:57 Exam Vital signs and Labs for Last 24 Hours: Temp Pulse Resp BP Pulse Ox 98.1 F 80 17 164/94 H 95 10/04/18 04:00 10/04/18 04:00 10/04/18 04:00 10/04/18 04:00 10/04/18 04:00 Laboratory Results - last 24 hr 10/03/18 13:08: WBC 7.9, RBC 4.65, Hgb 13.9, Hct 41.2, MCV 88.5, MCH 29.8, MCHC 33.6, RDW 15.5, Plt Count 204, MPV 8.0, Neut % (Auto) 76.2, Lymph % (Auto) 13.4, [place] % (Auto) 5.9, Eos % (Auto) 4.0, Baso % (Auto) 0.4, Neut # (Auto) 6.0, Lymph # (Auto) 1.1, Amelia # (Auto) 0.5, Eos # (Auto) 0.3, Baso # (Auto) 0.0 10/03/18 13:08: Sodium 139, Potassium 4.0, Chloride 98, Carbon Dioxide 30, Anion Gap 11.0, BUN 27 H, Creatinine 2.14 H, Estimated Creat Clear 20, Estimated GFR 22 L, Est GFR ( Amer) 27 L, Glucose 204 H, Calcium 13.8 H*, Total Bilirubin 0.5, AST 10 L, ALT 19, Alkaline Phosphatase 55, Total Protein 8.7 H, Albumin 3.8, Globulin 4.9 H, Albumin/Globulin Ratio 0.8 L 10/03/18 13:08: Total Creatine Kinase 31, CK-MB (CK-2) 0.7, CK-MB (CK-2) Rel Index 2.3, Troponin I < 0.02 10/03/18 13:08: TSH 3.37, Free T4 Index 2.1 L, Thyroxine (T4) 5.4, T3 Uptake 39 10/03/18 14:08: Urine Color Yellow, Urine Appearance Clear, Urine pH 6.0, Ur Specific [place] 1.020, Urine Protein 1+, Urine Glucose (UA) Negative, Urine Ketones Negative, Urine Blood Negative, Urine Nitrate Negative, Urine Bilirubin Negative, Urine Urobilinogen 0.2, Ur Leukocyte Esterase Negative, Urine WBC 5- 10, Ur Squamous Epith Cells 5-10, Urine Bacteria 1+ 10/03/18 16:38: POC Glucose 129 H 10/03/18 20:37: POC Glucose 174 H 10/04/18 06:06: Sodium 140, Potassium 3.6, Chloride 103, Carbon Dioxide 28, Anion Gap 12.6, BUN 21 H, Creatinine 1.54 H D, Estimated Creat Clear 26, Estimated GFR 32 L, Est GFR ( Amer) 39 L D, Glucose 102 D, Calcium 11.3 H D 10/04/18 06:06: POC Glucose 99 I & O for Last 24 hours: Intake & Output 10/01/18 10/02/18 10/03/18 10/04/18 11:59 11:59 11:59 11:59 Intake Total 2289 / 2289 Balance 2289 / 2289 Weight 134 lb 4 oz Narrative: Patient is awake and alert. She appears comfortable in bed. Oropharynx is moist. Ears reveal normal tympanic membranes and clear canals. Neck has no carotid bruits. Lungs are clear to auscultation. Heart has a regular rate and rhythm. Abdomen is soft, nontender, nondistended. Patient has active range of motion in all extremities. No bruising of the skin. Assessment and Plan (1) Acute kidney injury Current visit: Yes Status: Acute Category: Medical Code(s): N17.9 - Acute kidney failure, unspecified (2) Hypercalcemia Current visit: Yes Status: Acute Category: Medical Code(s): E83.52 - Hypercalcemia (3) UTI (urinary tract infection) Current visit: Yes Status: Acute Qualifiers: Urinary tract infection type: site unspecified Hematuria presence: without hematuria Qualified Code(s): N39.0 - Urinary tract infection, site not specified Category: Medical Code(s): N39.0 - Urinary tract infection, site not specified (4) Falls frequently Current visit: No Status: Acute Category: Medical Code(s): R29.6 - Repeated falls - Assessment and plan all Dx Assessment and Plan for all problems:: 1. Hypercalcemia is improving with discontinuation of hydrochlorothiazide and fluids. I have asked patient to have her family bring in all of her home medications as I believe there is some confusion around what she is to be taking 2. Acute kidney injury has improved with dehydration and discontinuation of hydrochlorothiazide. Hold metformin due to renal function 3. PT eval today. Patient would continue to benefit from short-term rehab at detention facility.
[2018-10-05 07:20] LABS: Anion Gap 12.2 mEq/L (5-15); Calcium 10.3 mg/dL (8.5-10.1); Potassium 3.2 mmoL/L (3.5-5.1)
--- NOTE | 2018-10-05 07:32 | Progress Note ---
Internal Medicine - PN: Subj *Date: 10/05/18 *Time: 07:30 Interval history: Patient has no complaints this morning. She was able to walk 25 feet with physical therapy yesterday before her legs began to feel weak. She denies any problems this morning including pain Exam Vital signs and Labs for Last 24 Hours: Temp Pulse Resp BP Pulse Ox 98.1 F 78 16 165/94 H 97 10/05/18 04:00 10/05/18 04:00 10/05/18 04:00 10/05/18 04:00 10/05/18 04:00 Laboratory Results - last 24 hr 10/03/18 14:25: PTH Intact 14 L 10/03/18 14:25: 25-OH Vitamin D Total 54.8 10/04/18 06:06: Calcium 11.3 H D 10/04/18 10:37: POC Glucose 157 H 10/04/18 16:31: POC Glucose 208 H 10/04/18 20:50: POC Glucose 221 H 10/05/18 05:56: POC Glucose 109 I & O for Last 24 hours: Intake & Output 10/02/18 10/03/18 10/04/18 10/05/18 11:59 11:59 11:59 11:59 Intake Total 3331 / 3331 2778 / 2778 Balance 3331 / 3331 2778 / 2778 Weight 134 lb 4 oz 133 lb 9 oz Narrative: She appears comfortable sitting up in bed eating her breakfast. Lungs are clear. Heart has a regular rate and rhythm. Assessment and Plan (1) Acute kidney injury Current visit: Yes Status: Acute Category: Medical Code(s): N17.9 - Acute kidney failure, unspecified (2) Hypercalcemia Current visit: Yes Status: Acute Category: Medical Code(s): E83.52 - Hypercalcemia (3) UTI (urinary tract infection) Current visit: Yes Status: Acute Qualifiers: Urinary tract infection type: site unspecified Hematuria presence: without hematuria Qualified Code(s): N39.0 - Urinary tract infection, site not specified Category: Medical Code(s): N39.0 - Urinary tract infection, site not specified (4) Falls frequently Current visit: No Status: Acute Category: Medical Code(s): R29.6 - Repeated falls - Assessment and plan all Dx Assessment and Plan for all problems:: 1. Patient is ready for discharge. We are waiting to hear back from insurance regarding precertification for stay at [facility] facility. If this is denied patient will be discharged home with home health 2. Hypercalcemia is resolving and patient has been instructed to stop her hydrochlorothiazide permanently 3. Await labs this morning to determine whether patient will restart metformin
--- NOTE | 2018-10-05 07:34 | Discharge Summary ---
General - General Admission date:: 10/03/18 Discharge date: 10/07/18 HPI HPI: 82-year-old female return to the emergency department yesterday after a fall at home in her bathroom. Patient was just discharged from the hospital on September 24 after falls at home due to weakness. Patient tells me she was in her bathroom when her legs became weak and gave out on her and she fell back against the wall. She has been ambulating with a walker at home. This is her first fall since returning home. She reports the strength in her legs has a tendency to come and go throughout the day. There will be times when she feels steady on her feet with a walker and there will will be times when she feels unsteady and almost afraid to walk. In the emergency department she underwent evaluation as hypokalemia has been a recurring problem for the patient. However this time the patient was found to be hypercalcemic. In addition to this hydrochlorothiazide was listed as a medicine on admission this time however this was not a discharge medication during her last hospitalization. Patient does not recall when she started taking the hydrochlorothiazide. Patient had not been seen in follow-up in the office yet so this was not prescribed by my office since discharge. During her last hospitalization it was believe she would benefit from longterm facility but this was declined by her insurance. Hospital Course Hospital Course: Patient was admitted and started on IV fluids. Her hydrochlorothiazide which was thought to be the cause of her hypercalcemia was held. With IV fluid hydration patient's calcium decreased and renal function slowly improved. After 48 hours patient was ready for discharge. Due to frequent falls at home PT and OT evaluations were ordered on October 04. Patient was only able to ambulate 25 feet. Authorization for short-term rehab stay was sought through her insurance. Patient was approved for a short-term rehab stay. Rehab potential: Good Prognosis: Fair Mental status: Average Objective Vital signs: Temp Pulse Resp BP Pulse Ox 98.1 F 78 16 165/94 H 97 10/05/18 04:00 10/05/18 04:00 10/05/18 04:00 10/05/18 04:00 10/05/18 04:00 Results Labs on day of discharge: Labs from last 24 hours 10/05/18 10/04/18 10/04/18 05:56 20:50 16:31 POC Glucose 109 221 H 208 H Calcium 25-OH Vitamin D Total PTH Intact 10/04/18 10/04/18 10/03/18 10:37 06:06 14:25 POC Glucose 157 H Calcium 11.3 H D 25-OH Vitamin D Total 54.8 PTH Intact 10/03/18 14:25 POC Glucose Calcium 25-OH Vitamin D Total PTH Intact 14 L DS: Diagnosis - Discharge Diagnosis (1) Acute kidney injury Status: Acute (2) Hypercalcemia Status: Acute (3) UTI (urinary tract infection) Status: Acute (4) Falls frequently Status: Acute Discharge Plan - Patient Discharge Instructions ACTIVITY: Continue current activity DIET: continue same diet Patient Instructions: DI for Dehydration -- Adult, Acute Renal Failure, DI for Urinary Tract Infection (UTI), DI for Hypercalcemia - Follow up Plan Disposition: [facility] Home Medications: Home Medications Medication Instructions Recorded Confirmed Type Albuterol Sulfate [Proair Hfa 2 puffs IH Q6HP PRN 08/13/18 10/03/18 History 90mcg/puff Inh] Amlodipine Besylate [Amlodipine 10 mg PO DAILY 08/13/18 10/03/18 History 10mg Tab] Metoprolol Succinate 25 mg PO DAILY 09/21/18 10/03/18 History Calcium Carbonate [Calcium] 600 mg PO DAILY 09/22/18 10/03/18 History Cholecalciferol (Vitamin D3) 2,000 unit PO DAILY 09/22/18 10/03/18 History [Vitamin D3] Metformin HCl 500 mg PO BIDWM 09/22/18 10/03/18 History Multivit-Min/FA/Lycopen/Lutein 1 each PO DAILY 09/22/18 10/03/18 History [Centrum Silver Tablet] Potassium Chloride 20 meq PO BID #0 09/24/18 10/03/18 Rx cephALEXin [Cephalexin 500mg Tab] 500 mg PO QID 10/03/18 10/03/18 History hydroCHLOROthiazide 12.5 mg PO DAILY 10/03/18 10/03/18 History [Hydrochlorothiazide 12.5mg Tab] Esomeprazole Magnesium [Nexium] 20 mg PO DAILY 10/04/18 10/04/18 History Glimepiride 1 mg PO DAILY #30 tab 10/07/18 Rx Prescriptions/Medication Reconciliation: New Glimepiride 1 mg PO DAILY #30 tab Continued Albuterol Sulfate [Proair Hfa 90mcg/puff Inh] 2 puffs IH Q6HP PRN PRN Reason: Shortness Of Breath Or Wheezing Amlodipine Besylate [Amlodipine 10mg Tab] 10 mg PO DAILY Metoprolol Succinate 25 mg PO DAILY Multivit-Min/FA/Lycopen/Lutein [Centrum Silver Tablet] 1 each PO DAILY Potassium Chloride 20 meq PO BID #0 Esomeprazole Magnesium [Nexium] 20 mg PO DAILY Discontinued Metformin HCl 500 mg PO BIDWM Cholecalciferol (Vitamin D3) [Vitamin D3] 2,000 unit PO DAILY hydroCHLOROthiazide [Hydrochlorothiazide 12.5mg Tab] 12.5 mg PO DAILY cephALEXin [Cephalexin 500mg Tab] 500 mg PO QID Calcium Carbonate [Calcium] 600 mg PO DAILY
[2018-10-06 07:35] LABS: Anion Gap 11.6 mEq/L (5-15); Calcium 10.8 mg/dL (8.5-10.1); Potassium 3.6 mmoL/L (3.5-5.1)
--- NOTE | 2018-10-06 07:50 | Progress Note ---
Internal Medicine - PN: Brooke *Date: 10/06/18 *Time: 07:48 Interval history: Patient has no complaints this morning. Appetite has been good. She did participate with physical therapy yesterday Exam Vital signs and Labs for Last 24 Hours: Temp Pulse Resp BP Pulse Ox 97.4 F L 84 20 151/95 H 97 10/06/18 04:00 10/06/18 04:00 10/06/18 04:00 10/06/18 04:00 10/06/18 04:00 Laboratory Results - last 24 hr 10/05/18 12:05: POC Glucose 179 H 10/05/18 16:38: POC Glucose 140 H 10/05/18 21:07: POC Glucose 185 H 10/06/18 06:27: POC Glucose 115 H 10/06/18 07:09: Sodium 140, Potassium 3.6, Chloride 104, Carbon Dioxide 28, Anion Gap 11.6, BUN 21 H D, Creatinine 1.54 H, Estimated Creat Clear 26, Estimated GFR 32 L, Est GFR ( Amer) 39 L, Glucose 121 H, Calcium 10.8 H I & O for Last 24 hours: Intake & Output 10/03/18 10/04/18 10/05/18 10/06/18 11:59 11:59 11:59 11:59 Intake Total 3331 / 3331 3138 / 3138 720 / 720 Balance 3331 / 3331 3138 / 3138 720 / 720 Weight 134 lb 4 oz 133 lb 9 oz 135 lb 1 oz Narrative: She is laying comfortably in bed. Lungs remain clear. Heart has a regular rate and rhythm. Abdomen is soft and nontender Assessment and Plan (1) Acute kidney injury Current visit: Yes Status: Acute Category: Medical Code(s): N17.9 - Acute kidney failure, unspecified (2) Hypercalcemia Current visit: Yes Status: Acute Category: Medical Code(s): E83.52 - Hypercalcemia (3) UTI (urinary tract infection) Current visit: Yes Status: Acute Qualifiers: Urinary tract infection type: site unspecified Hematuria presence: without hematuria Qualified Code(s): N39.0 - Urinary tract infection, site not specified Category: Medical Code(s): N39.0 - Urinary tract infection, site not specified (4) Falls frequently Current visit: No Status: Acute Category: Medical Code(s): R29.6 - Repeated falls - Assessment and plan all Dx Assessment and Plan for all problems:: 1. Calcium level has improved significantly. No further changes and will discontinue IV fluids 2. Await insurance response to request for short-term rehab at senior living facility
== END 2018-10-07 11:58 ==
LOC: ER 12:56 → 2ND 12:56 → OB 10-06 12:40
PROVIDERS: ADMIT Family Medicine; ATTEND Family Medicine
CPT/HCPCS: 36415; 80048; 80053; 81001; 82550; 82553; 82652; 82962; 83970; 84436; 84443; 84479; 84484; 85025; 93005; 96365; 96367; 97110; 97116; 97161; 97166; 97530; 97535; 99285; G0378